=== PATIENT | male | born 1970 | race Caucasian/White ===

== ENCOUNTER 2020-03-04 18:06 | Outpatient (REF) | payer MEDICAID, SELFPAY ==
--- NOTE | 2020-03-04 18:10 | MR_ITS ---
MR LUMBAR SPINE WITHOUT CONTRAST CLINICAL INFORMATION: Low back pain. Bilateral leg pain. COMPARISON: Lumbar spine radiographs January 27, 2020. TECHNIQUE: MRI of the lumbar spine was obtained using routine sequences without contrast. FINDINGS: There are 5 nonrib-bearing lumbar-type vertebral bodies. Lumbar alignment is maintained. The vertebral body heights are preserved. There is moderate to severe disc volume loss and there is disc desiccation at L5-S1. There is no bone marrow edema. There are no acute fractures. There are Modic type II endplate signal changes at L5-S1. The conus terminates at the L1 level. There are no significant soft tissue findings. The L1-L2, L2-L3, and L3-L4 disc contours are normal. There is no central canal stenosis and there is no foraminal stenosis at these levels. L4-L5: Small annular disc bulge and mild bilateral facet arthropathy. There is no central canal stenosis. There is no foraminal stenosis. L5-S1: There is an inferiorly migrating left paracentral disc extrusion that compresses the traversing left S1 nerve root within the left subarticular zone. There is also a shallow broad-based disc protrusion at this level that contacts the traversing right S1 nerve root within the right subarticular zone. There is also a far left lateral disc osteophyte protrusion at this level that contacts the extraforaminal left L5 nerve root. MR/MR lumbar spine wo con IMPRESSION: At L5-S1, there is an inferiorly migrating left paracentral disc extrusion that compresses the traversing left S1 nerve root within the left subarticular zone. There is also a shallow broad-based disc protrusion at this level that contacts the traversing right S1 nerve root within the right subarticular zone. There is also a far left lateral disc osteophyte protrusion at this level that contacts the extraforaminal left L5 nerve root.
== END 2020-03-04 18:07 | disposition home or self-care (01) ==
LOC: HO.MRI 18:06
PROVIDERS: PCP Internal Medicine; Visit Provider Internal Medicine
DX: M54.5 Low back pain (principal)
CPT/HCPCS: 72148

== ENCOUNTER 2020-10-03 09:22 | Outpatient (REF) | payer MEDICAID, SELFPAY ==
--- NOTE | ~2020-10-03 | XR_ITS ---
EXAMINATION: XR HAND, RIGHT XR HAND, LEFT CLINICAL INFORMATION: Anesthesia of skin COMPARISON: None TECHNIQUE: Each hand is imaged in 3 views. There are a total of 6 views. FINDINGS: Right: There is normal bony mineralization. No fracture, dislocation, destructive process. The ulnar variance is neutral. Carpus shows no narrowing or erosive change or chondrocalcinosis. The MCP and interphalangeal joints are unremarkable. Left: There is normal bony mineralization. No fracture, dislocation, destructive process. The ulnar variance is neutral. Carpus shows no narrowing or erosive change or chondrocalcinosis. The MCP and interphalangeal joints are unremarkable. XR/XR hand LT min 3V IMPRESSION: Normal study.
--- NOTE | ~2020-10-03 | XR_ITS ---
EXAMINATION: XR HAND, RIGHT XR HAND, LEFT CLINICAL INFORMATION: Anesthesia of skin COMPARISON: None TECHNIQUE: Each hand is imaged in 3 views. There are a total of 6 views. FINDINGS: Right: There is normal bony mineralization. No fracture, dislocation, destructive process. The ulnar variance is neutral. Carpus shows no narrowing or erosive change or chondrocalcinosis. The MCP and interphalangeal joints are unremarkable. Left: There is normal bony mineralization. No fracture, dislocation, destructive process. The ulnar variance is neutral. Carpus shows no narrowing or erosive change or chondrocalcinosis. The MCP and interphalangeal joints are unremarkable. XR/XR hand RT min 3V IMPRESSION: Normal study.
== END 2020-10-03 09:23 | disposition home or self-care (01) ==
LOC: HO.XRAY 09:22
PROVIDERS: PCP Internal Medicine; Visit Provider Internal Medicine
DX: R20.0 Anesthesia of skin (principal)
CPT/HCPCS: 73130

== ENCOUNTER 2021-02-23 09:09 | Outpatient (REF) | payer MEDICAID, SELFPAY ==
--- NOTE | 2021-02-23 09:10 | EMG_ITS ---
Bilateral median and ulnar motor and sensory studies were performed. Bilateral radial sensory studies were performed. Paraspinal muscles were tested with a needle. IMPRESSION: There was no evidence of median neuropathy. There was evidence of ulnar nerve slowing, which was mild on right side and early on left. MD JADON Watkins/MODL / [id number]
== END 2021-02-23 09:10 | disposition home or self-care (01) ==
LOC: HO.NEURO 09:09
PROVIDERS: PCP Internal Medicine; Visit Provider Internal Medicine
DX: R20.0 Anesthesia of skin (principal)
CPT/HCPCS: 95886; 95911

== ENCOUNTER → 2021-03-21 14:53 | Outpatient (BNVA) | payer MEDICAID, SELFPAY | PROVIDERS: Visit Provider Orthopaedic Surgery | DX: G56.21 Lesion of ulnar nerve, right upper limb (principal) | CPT/HCPCS: 99202 ==

== ENCOUNTER → 2021-06-01 15:32 | Outpatient (BNVA) | payer MEDICAID, SELFPAY | PROVIDERS: PCP Internal Medicine; Referring Provider Internal Medicine; Visit Provider Physician Assistant ==

== ENCOUNTER → 2021-06-30 08:42 | Outpatient (BNVA) | payer MEDICAID, SELFPAY | PROVIDERS: PCP Internal Medicine; Visit Provider Surgery ==

== ENCOUNTER 2021-07-12 09:49 | Outpatient (REF) | payer MEDICAID, SELFPAY ==
--- NOTE | ~2021-07-12 | XR_ITS ---
EXAMINATION: XR CHEST CLINICAL INFORMATION: Obesity COMPARISON: None TECHNIQUE: 2 views of the chest were obtained. FINDINGS: No significant abnormality is noted involving the heart, lungs, mediastinum, bony thorax or soft tissues. XR/XR chest 2V IMPRESSION: Unremarkable chest examination.
--- NOTE | 2021-07-12 09:58 | ECG_ITS ---
Test Reason : E66.9 Blood Pressure : / mmHG Vent. Rate : 103 BPM Atrial Rate : 103 BPM P-R Int : 116 ms QRS Dur : 084 ms QT Int : 328 ms P-R-T Axes : 058 130 009 degrees QTc Int : 429 ms Sinus tachycardia Right axis deviation Abnormal ECG No previous ECGs available Referred By: Sudhir Casiano Electronically Signed By:Luis Alberto Gamez
[2021-07-12 10:12] LABS: MANUAL DIFF FLAG NO
[2021-07-12 10:30] LABS: Basophils Percent Auto 0.7 % (0-2); Eosinophils Absolute Auto 0.3 X10*3/uL (0.0-0.4); Eosinophils Percent Auto 5.2 % (0-4); Hematocrit 46.7 % (42.0-52.0); Hemoglobin 15.7 g/dl (14.0-18.0); Imm Gran Abs Auto 0.02 X10*3/uL (0.00-0.03); Imm Gran Pct Auto 0.3 % (0.0-0.4); Lymphocytes Absolute Auto 2.5 X10*3/uL (1.2-4.9); Lymphocytes Percent Auto 43.1 % (20-40); Mean Corpuscular HGB Conc 33.6 g/dl (31.0-36.0); Mean Corpuscular Hemoglobin 29.5 pg (27.0-33.0); Mean Corpuscular Volume 87.6 fL (80.0-98.0); Monocytes Absolute Auto 0.6 X10*3/uL (0.1-1.2); Monocytes Percent Auto 10.2 % (2-11); Neutrophils Absolute Auto 2.3 x10*3/uL (2.0-8.3); Neutrophils Percent Auto 40.5 % (45-73); Platelet Count 309 X10*3/uL (160-400); Red Blood Count 5.33 X10*6/uL (4.60-5.80); Red Cell Distribution Width 13.4 % (11.0-16.0); White Blood Count 5.8 X10*3/uL (4.8-10.8)
[2021-07-12 11:13] LABS: Estimated Average Glucose 111 mg/dL; Hemoglobin A1c % 5.5 %
[2021-07-12 11:28] LABS: Alanine Aminotransferase 43 U/L (0-40); Albumin Level 4.1 g/dL (3.5-5.0); Alkaline Phosphatase 111 U/L (39-117); Anion Gap 12 (12-20); Aspartate Amino Transferase 25 U/L (5-37); Bilirubin Total 0.4 mg/dL (0.0-1.0); Blood Urea Nitrogen 16 mg/dL (9-16); C Reactive Protein 0.44 mg/dL (< or = 0.50); Calcium 9.4 mg/dL (8.4-10.2); Carbon Dioxide 31 mmol/L (22-29); Chloride 103 mmol/L (96-108); Cholesterol 188 mg/dL; Estimated Glomerular Filt Rate 56; Glucose Random 100 mg/dL (60-115); HDL Cholesterol 35 mg/dL; Iron 46 mcg/dL (45-160); LDL Cholesterol Calculated 106 mg/dl; Potassium 4.8 mmol/L (3.3-5.1); Sodium 141 mmol/L (135-145); Total Protein 7.3 g/dL (6.5-8.0); Triglycerides 237 mg/dL
[2021-07-12 11:40] LABS: TSH reflex Free T4 1.49 uIU/mL (0.32-4.0); Vitamin D 25-OH Total 18.4 ng/mL (>30)
[2021-07-12 11:43] LABS: Folate 13.1 ng/mL (> or = 4.0); Vitamin B12 329 pg/mL (200-900)
[2021-07-12 12:14] LABS: Percent Iron Saturation 15 % (15-50); Total Iron Binding Capacity 302 mcg/dL (228-428); Unsaturated Iron Binding 256 ug/dL
[2021-07-12 12:34] LABS: Ferritin 84 ng/mL (20-250); Insulin 23 uU/mL (2-29)
[2021-07-13 14:33] LABS: Calcium (PTHI) 9.4 mg/dL (8.6-10.3); PTHI 99 pg/mL (14-64)
[2021-07-15 03:42] LABS: Zinc 77 mcg/dL (60-130)
[2021-07-17 12:31] LABS: Vitamin B1 12 nmol/L (8-30)
[2021-07-18 03:16] LABS: Vitamin A 52 mcg/dL (38-98)
== END 2021-07-12 09:50 | disposition home or self-care (01) ==
LOC: HO.XRAY 09:49
PROVIDERS: PCP Internal Medicine; Visit Provider Surgery
DX: E66.9 Obesity, unspecified (principal); K21.9 Gastro-esophageal reflux disease without esophagitis; G47.30 Sleep apnea, unspecified; Z68.36 Body mass index [BMI] 36.0-36.9, adult
CPT/HCPCS: 36415; 71046; 80053; 80061; 82306; 82607; 82728; 82746; 83036; 83525; 83540; 83970; 84425; 84443; 84590; 84630; 85025; 86140; 93005

== ENCOUNTER → 2021-07-24 08:35 | Outpatient (BNVA) | payer MEDICAID, SELFPAY | PROVIDERS: PCP Internal Medicine; Visit Provider Dietitian, Registered | DX: E66.9 Obesity, unspecified (principal); Z68.35 Body mass index [BMI] 35.0-35.9, adult | CPT/HCPCS: 97802 ==

== ENCOUNTER 2021-08-01 13:57 | Outpatient (REF) | payer MEDICAID, SELFPAY | END 2021-08-01 13:58 | disposition home or self-care (01) | LOC: HO.US 13:57 | PROVIDERS: Visit Provider Surgery | DX: Z13.89 Encounter for screening for other disorder (principal) ==

== ENCOUNTER → 2021-08-03 09:50 | Outpatient (REF) | payer MEDICAID, SELFPAY ==
--- NOTE | ~2021-08-03 | NM_ITS ---
Lexiscan Myocardial perfusion study Indication: Preoperative cardiovascular evaluation, obesity Technique: The patient was brought in for a Lexiscan perfusion study on 08/03/2021 and was injected 0.4 mg of Lexiscan intravenously. Within a minute of this injection 35 mCi of sestamibi was given intravenously. Images were obtained using the SPECT gamma camera interlaced with the gating device. Images were obtained in supine position. Resting perfusion study was performed on 08/07/2021. Patient was administered 35 mCi of sestamibi intravenously at rest. Images were then obtained in supine position. Total [id number]. Images were processed with the software and compared side to side in short axis, horizontal long axis and vertical long axis views. Findings: Raw acquisition was reviewed. The stress perfusion study showed diminished tracer uptake along the inferior wall. There is improvement with CT attenuation correction side S2 of diaphragmatic attenuation artifact. However in the CT attenuation corrected images there is diminished uptake in the anterior wall which could be artifactual. The gated study shows normal LV systolic function with calculated LVEF of 56%. LV cavity is normal in size. The gated study shows normal wall thickening and contraction of segments. Resting study shows no significant perfusion abnormality. Gating at rest reveals normal wall motion with ejection fraction at 73%. The findings are consistent with reversible inferior perfusion defect suspected to be from diaphragmatic attenuation artifact. NM/NM jose miguel perf SPECT rest & str Impression: 1. Myocardial perfusion imaging study shows no definitive evidence of any ischemia or infarction. Likely normal perfusion. 2. Gated LVEF is 65% during stress and 73% during rest. 3. Transient ischemic dilatation not present. EKG component of the test reported separately.
--- NOTE | 2021-08-03 09:53 | CA_ITS ---
Acquisition Time: 2021-08-03 09:56:46 Total Exercise Time: 00:02:00 Test Indications: R94.31 - Abnormal electrocardio Medications: Protocol: LEXISCAN Max HR: 127 BPM 74% of Pred: 171 BPM Max BP: 114/070 mmHG Max Work Load: 1.0 METS Pharmacological stress test with Lexiscan injection, while sitting and kicking his legs, without anginal symptoms, without arrythmia, with normotensive response to injection, with T wave inversions inferior, V3-V6 post injection, which corrects quickly, nondiagnostic for ischemia. In recovery he reported fatigue which was treated with Aminophylline 75mg IVP to reverse Lexiscan with resolution of symptom. Nuclear images pending. Test reviewed with Dr Gamez. Referred By: Sudhir Casiano Overread By: COLE BOOTH
== END ==
LOC: HO.CARD 09:50
PROVIDERS: Visit Provider Surgery
DX: R94.31 Abnormal electrocardiogram [ECG] [EKG] (principal)
CPT/HCPCS: 78452; 93017; A9500; J0280; J2785

== ENCOUNTER 2021-08-04 11:01 | Outpatient (REF) | payer MEDICAID, SELFPAY ==
[2021-08-06 11:40] LABS: H Pylori Breath Test Negative (Negative)
== END 2021-08-04 11:02 | disposition home or self-care (01) ==
LOC: HO.LNP 11:01
PROVIDERS: PCP Internal Medicine; Visit Provider Surgery
DX: E66.9 Obesity, unspecified (principal); Z68.36 Body mass index [BMI] 36.0-36.9, adult; K21.9 Gastro-esophageal reflux disease without esophagitis; G47.30 Sleep apnea, unspecified
CPT/HCPCS: 83013; 99211

== ENCOUNTER 2021-08-08 14:49 | Outpatient (REF) | payer MEDICAID, SELFPAY ==
--- NOTE | ~2021-08-08 | US_ITS ---
EXAMINATION: US COMPLETE ABDOMEN WITH LIVER ELASTOGRAPHY CLINICAL INFORMATION: Obesity. COMPARISON: None. TECHNIQUE: Real-time imaging of the abdominal viscera. Noninvasive ultrasound liver fibrosis assessment is performed using Shoaib ElastPQ point quantification shear wave elastography (2D-SWE) with a C5-2 MHz transducer. Multiple elastography samples are obtained. FINDINGS: PANCREAS: The visualized pancreatic head and body are normal in appearance. The remainder of the pancreas is obscured from visualization by the overlying bowel gas. ABDOMINAL AORTA: The proximal abdominal and IVC are not seen. The mid and the distal abdominal aorta are of normal caliber. INFERIOR VENA CAVA: Not visualized. LIVER: The liver demonstrates normal size, contour and increased echogenicity with areas of focal fatty sparing. No intrahepatic biliary duct dilatation. The right lobe measures 14.4 cm in length. The left lobe measures 8.5 cm in length. Portal flow is hepatopedal. Shear wave liver elastography median stiffness is 1.9 m/s (reference: normal median stiffness is 1.3 m/s or less). IQR/median stiffness to assess sampling precision is 0.26 (reference: good quality data set is IQR/median stiffness of 0.15 or less). GALLBLADDER: The gallbladder is limited in visualization due to patient's body habitus. No echogenic gallstones or wall thickening seen. COMMON BILE DUCT: Normal in caliber measuring 0.25 cm in diameter. RIGHT KIDNEY: Normal. No hydronephrosis. No renal calculi or focal parenchymal lesions. The kidney measures 10.0 cm in maximum dimension. LEFT KIDNEY: Normal. No hydronephrosis. No renal calculi or focal parenchymal lesions. The kidney measures 11.2 cm in maximum dimension. SPLEEN: Normal. The spleen measures 7.7 cm in maximum dimension. FREE FLUID: None. US/US abdomen comp w elastography IMPRESSION: 1. Diffuse hepatic steatosis with areas of focal fatty sparing. 2. Liver elastography: Median liver stiffness 1.9 m/s corresponding to cACLD suggestive. REFERENCE: Society of Radiologists in Ultrasound Liver Stiffness Thresholds (2020): LIVER STIFFNESS THRESHOLDS: *Liver Stiffness equal or less than 1.3 m/s: High probability of being normal. *Liver Stiffness less than 1.7 m/s: In the absence of other known clinical signs, rules out compensated advanced chronic liver disease. *Liver Stiffness 1.7-2.1 m/s: Suggestive of compensated advanced chronic liver disease but need further test for confirmation. *Liver Stiffness over 2.1 m/s: Rules in compensated advanced chronic liver disease. *Liver Stiffness over 2.4 m/s: Suggestive of clinically significant portal hypertension. QUALITY OF DATA SET: *IQR/Median value equal or less than 0.15 implies a quality data set. *IQR/Median value over 0.15 implies a poor quality data set. SIGNIFICANT CHANGE FROM PRIOR EXAM: Significant change if liver stiffness measurement is 10% or greater from prior exam. OTHER CONSIDERATIONS: The stage of liver fibrosis may be overestimated in the setting of acute hepatitis, liver inflammation, elevated liver function tests, hepatic vascular congestion, obstructive cholestasis, non-fasting state, and infiltrative diseases such as amyloidosis and lymphoma. In some patients with NAFLD, the liver stiffness thresholds for compensated advanced chronic liver disease may be lower. In causes other than viral hepatitis and NAFLD, liver stiffness thresholds are not well established.
== END 2021-08-08 14:50 | disposition home or self-care (01) ==
LOC: HO.US 14:49
PROVIDERS: Visit Provider Surgery
DX: E66.9 Obesity, unspecified (principal); Z68.36 Body mass index [BMI] 36.0-36.9, adult; G47.30 Sleep apnea, unspecified; K21.9 Gastro-esophageal reflux disease without esophagitis
CPT/HCPCS: 76705; 76981

== ENCOUNTER 2021-08-14 10:46 | Outpatient (REF) | payer MEDICAID, SELFPAY ==
--- NOTE | ~2021-08-14 | FL_ITS ---
EXAMINATION: XR FLUOROSCOPY UPPER GI WITH AIR CLINICAL INFORMATION: Obesity COMPARISON: None TECHNIQUE: Fluoroscopic assessment of the upper GI tract was performed in various upright and supine/prone obliquities utilizing thin and thick high density barium contrast material and effervescent granules. FINDINGS: The esophagus was normal in course, caliber, and contour. There was normal distensibility with no fixed segment of narrowing. No focal mucosal abnormality was identified. Mild esophageal dysmotility was observed. Contrast passed freely across the gastroesophageal junction into the stomach. No significant hiatal hernia. Mildly prominent A ring is noted transiently. There was normal distensibility of the stomach with no focal abnormality identified. There was prompt gastric emptying into the duodenum which demonstrated a normal appearance. Mild gastroesophageal reflux was observed. FLUOROSCOPY TIME: 1.7 minutes DOSE AREA PRODUCT: 17.271 Gy-cm2 (fleming-centimeter squared) FL/FL upper GI w air IMPRESSION: Mild esophageal dysmotility with mild gastroesophageal reflux.
== END 2021-08-14 10:47 | disposition home or self-care (01) ==
LOC: HO.XRAY 10:46
PROVIDERS: Visit Provider Surgery
DX: E66.9 Obesity, unspecified (principal); Z68.36 Body mass index [BMI] 36.0-36.9, adult; G47.30 Sleep apnea, unspecified; K21.9 Gastro-esophageal reflux disease without esophagitis
CPT/HCPCS: 74246

== ENCOUNTER → 2021-08-16 15:02 | Outpatient (BNVA) | payer MEDICAID, SELFPAY | PROVIDERS: PCP Internal Medicine; Referring Provider Surgery; Visit Provider Dietitian, Registered | DX: E66.9 Obesity, unspecified (principal); Z68.35 Body mass index [BMI] 35.0-35.9, adult | CPT/HCPCS: 97803 ==

== ENCOUNTER → 2021-08-29 13:55 | Outpatient (REF) | payer MEDICAID, SELFPAY ==
--- NOTE | 2021-08-29 14:21 | CA_ITS ---
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 The visually estimated ejection fraction is between 60-65%. Spectral Doppler is indicative of a normal filling pattern. Right Ventricle Normal right ventricular cavity size and systolic function. Atria Both atria are normal in size. Interatrial shunt cannot be excluded. Aortic Valve The aortic valve structure and function is likely normal. There is no aortic valve stenosis. There is no aortic valve regurgitation. Mitral Valve Likely normal mitral valve structure and function. There is trace mitral valve regurgitation. There is no mitral valve stenosis. Pulmonic Valve The pulmonic valve was not well visualized. Tricuspid Valve Likely normal tricuspid valve structure and function. There is trace tricuspid valve regurgitation. The right ventricular systolic pressure is 24 mmHg. Normal right atrial pressure. There is no evidence of pulmonary hypertension. Great Vessels All visible segments of the aorta are normal in size. The pulmonary artery was not well visualized. Venous The inferior vena cava is normal in size and collapses greater than 50% with inspiration. Pericardium/Pleural There is no evidence of pericardial effusion. Prior Study Comparison No prior study available for comparison. Measurements 2D Linear Measurements IVSd: 0.98 0.6-0.9/0.6-1.0 cm LVIDd: 4.20 3.9-5.3/4.2-5.9 cm LVIDd Index: 2.03 2.4-3.2/2.2-3.1 cm/m2 LVIDs: 2.77 2.0-3.6 cm LVPWd: 1.06 0.7-1.1 cm LA Diam: 3.00 2.7-3.8/3.0-4.0 cm LAIDs Index: 1.45 1.5-2.3 cm/m2 LV Mass: 176.00 67-162/88-224 g LV Mass Index: 85.03 43-95/49-115 g/m2 LVOT Diam: 2.10 3.0+(-)1.3 cm 2D Systolic Function EF 4C: 59.60 >55% EF 2C: 61.80 >55% EF BiP: 59.90 >55% Mitral Valve MV Pk E: 0.88 MV PK A: 0.73 MV Decel Time: 153.00 E/A: 1.20 E'Lateral: 8.70 E'Medial: 6.85 E/E' Med: 12.80 E/E' Lat: 10.10 PHT: 45.00 MVA PHT: 4.89 Decel Liberty: 5.73 Aortic Valve AoV Pk Sean: 1.20 AoV Mn Sean: 0.89 AoV VTI: 0.25 AoV Pk Grad: 6.00 Aov Mn Grad: 3.00 PRESTON Cont.VTI: 2.84 LVOT LVOT Pk Sean: 0.91 LVOT Mn Sean: 0.62 LVOT VTI: 0.20 LVOT Pk Grad: 3.00 LVOT Mn Grad: 2.00 LVOT Diam: 2.10 LVOT Area: 3.46 Diastolic Function MV Pk E: 0.88 MV Pk A: 0.73 E/A: 1.20 E'Medial: 6.85 E/E' Med: 12.80 E' Laterial: 8.70 E/E' Lat: 10.10 Right Ventricle TAPSE (mm): 17.80 TVS' Sean: 10.80 Tricuspid Valve TR Pk Sean: 1.99 TR Pk Grad: 16.00 RA Press: 8.00 RVSP: 24.00 Great Vessels Aorta Sinus of Valsalva: 2.73 2.0-3.[address] Ridge: 2.59 1.7-3.4 cm Ao Arch: 2.80 Updated in Other Vendor System with Status of Final Mingo Garcia MD electronically signed on 08/30/2021 8:53:57 AM with status of Final
== END ==
LOC: HO.CARD 13:55
PROVIDERS: Visit Provider Surgery
DX: I10 Essential (primary) hypertension (principal); R94.31 Abnormal electrocardiogram [ECG] [EKG]
CPT/HCPCS: 93306

== ENCOUNTER → 2021-09-13 08:13 | Outpatient (BNVA) | payer MEDICAID, SELFPAY | PROVIDERS: PCP Internal Medicine; Visit Provider Surgery | DX: Z13.89 Encounter for screening for other disorder (principal) ==

== ENCOUNTER → 2021-11-27 12:30 | Outpatient (BNVA) | payer MEDICAID, SELFPAY | PROVIDERS: PCP Internal Medicine; Visit Provider Surgery | DX: K64.9 Unspecified hemorrhoids (principal) | CPT/HCPCS: 46600; 99202 ==

== ENCOUNTER 2022-01-16 10:55 | Outpatient (REF) | payer MEDICAID, SELFPAY ==
[2022-01-16 11:13] LABS: MANUAL DIFF FLAG NO
[2022-01-16 11:52] LABS: Basophils Percent Auto 0.7 % (0-2); Eosinophils Absolute Auto 0.1 X10*3/uL (0.0-0.4); Eosinophils Percent Auto 3.2 % (0-4); Hemoglobin 16.6 g/dl (14.0-18.0); Imm Gran Abs Auto 0.01 X10*3/uL (0.00-0.03); Imm Gran Pct Auto 0.2 % (0.0-0.4); Lymphocytes Absolute Auto 2.3 X10*3/uL (1.2-4.9); Lymphocytes Percent Auto 52.9 % (20-40); Mean Corpuscular HGB Conc 34.6 g/dl (31.0-36.0); Mean Corpuscular Hemoglobin 29.9 pg (27.0-33.0); Mean Corpuscular Volume 86.5 fL (80.0-98.0); Mean Platelet Volume 9.3 fL (9.4-12.4); Monocytes Absolute Auto 0.4 X10*3/uL (0.1-1.2); Monocytes Percent Auto 9.2 % (2-11); Neutrophils Absolute Auto 1.5 x10*3/uL (2.0-8.3); Neutrophils Percent Auto 33.8 % (45-73); Platelet Count 297 X10*3/uL (160-400); Red Blood Count 5.55 X10*6/uL (4.60-5.80); Red Cell Distribution Width 12.8 % (11.0-16.0); White Blood Count 4.4 X10*3/uL (4.8-10.8)
[2022-01-16 12:01] LABS: Estimated Average Glucose 105 mg/dL; Hemoglobin A1C 148.6176 umol/L; Hemoglobin A1c % 5.3 %
[2022-01-16 12:02] LABS: INTERNATIONAL NORM RATIO 0.9 (0.9-1.1); Prothrombin Time 10.7 SEC (10.0-13.1)
[2022-01-16 12:05] LABS: Partial Thromboplastin Time 35.7 SEC (26.0-36.4)
[2022-01-16 12:29] LABS: Alanine Aminotransferase 28 U/L (0-40); Albumin Level 4.1 g/dL (3.5-5.0); Alkaline Phosphatase 105 U/L (39-117); Anion Gap 14 (12-20); Aspartate Amino Transferase 19 U/L (5-37); Bilirubin Total 0.3 mg/dL (0.0-1.0); Blood Urea Nitrogen 19 mg/dL (9-16); C Reactive Protein 0.17 mg/dL (< or = 0.50); Carbon Dioxide 27 mmol/L (22-29); Chloride 105 mmol/L (96-108); Cholesterol 178 mg/dL; Estimated Glomerular Filt Rate > 60; Glucose Random 93 mg/dL (60-115); HDL Cholesterol 33 mg/dL; LDL Cholesterol Calculated 118 mg/dl; Potassium 4.6 mmol/L (3.3-5.1); Sodium 141 mmol/L (135-145); Total Protein 7.2 g/dL (6.5-8.0); Triglycerides 139 mg/dL
[2022-01-16 12:42] LABS: Insulin 13 uU/mL (2-29); TSH reflex Free T4 1.66 uIU/mL (0.32-4.0)
== END 2022-01-16 10:56 | disposition home or self-care (01) ==
LOC: HO.LAB 10:55
PROVIDERS: PCP Internal Medicine; Visit Provider Surgery
DX: K21.9 Gastro-esophageal reflux disease without esophagitis (principal); E66.9 Obesity, unspecified; Z68.34 Body mass index [BMI] 34.0-34.9, adult; G47.30 Sleep apnea, unspecified
CPT/HCPCS: 36415; 80053; 80061; 83036; 83525; 84443; 85025; 85610; 85730; 86140

== ENCOUNTER 2022-01-23 06:55 | Inpatient (IN) | payer MEDICAID, SELFPAY ==
[2022-01-10 10:56] VITALS: BMI 33.5
--- NOTE | 2022-01-19 22:46 | MHC.SHP ---
Pre-Procedural Eval Section A Date of Service: 01/19/22 The patient is an INPATIENT: Yes The History & Physical has been completed within 30 days and I have reviewed it.: Yes Section B Chief Complaint: obesity Relevant Family History (Specify if Yes): No Relevant Social History: None Present Medications: None Medical History: No relevant PMH History of Previous Operations: No relevant previous surgery Allergies: Allergies Allergy/AdvReac Type Severity Reaction Status Date / Time Penicillins [PENICILLINS] Allergy Severe Anaphylaxis Verified 01/10/22 10:55 Review of Systems Sugical H&P ROS: Negative: Constitution, Cardiovascular, Respiratory, Neurological, Psychiatric, Hem-Onc, Allergic/Immunologic, Gastrointestinal, Genitourinary, Musculoskeletal, Integumentary, Endocrine and Eyes/Ears/Nose/Throat Exam Surgical H&P Exam: Normal: HEENT, Normal: Heart, Normal: Lungs, Normal: Extremities, Normal: Abdomen, Normal: Skin and Normal: Neurological Plan Diagnosis/Plan: Unchanged I have reviewed the history and physical and performed a pertinent physical examination on my patient. No changes have occurred unless specified.
--- NOTE | 2022-01-22 10:30 | P.CONAN_ITS ---
Documented by User: Manisha Desai NP 01/22/22 10:31 HPI - Anesthesia Eval Consult details Narrative: 51yo M for Gastrectomy Sleeve, possible diaphragmatic hernia,possible ventral hernia,possible open PMFSH Active Problems Active Problems: All Active Problems (Updated 01/10/22 @ 11:00 by Mary Anne Chatman, MARIAN) Cubital tunnel syndrome on right (Acute) BMI 36.0-36.9,adult (Acute) Vitamin D deficiency (Acute) Vitamin B12 deficiency (Acute) Abnormal EKG (Acute) BMI 34.0-34.9,adult (Acute) BMI 33.0-33.9,adult (Acute) Bleeding hemorrhoids (Acute) Depression (Acute) PTSD (post-traumatic stress disorder) (Acute) Arthritis (Acute) GERD (gastroesophageal reflux disease) (Acute) Sleep apnea (Acute) Obesity (Acute) Past Medical History Medical History (Updated 01/10/22 @ 11:00 by Mary Anne Chatman, MARIAN) Anxiety Arthritis Back pain Bleeding hemorrhoids Chronic sinusitis COVID-19 vaccine series completed Depression GERD (gastroesophageal reflux disease) Lumbar disc herniation Obesity PTSD (post-traumatic stress disorder) Sleep apnea Surgical History Surgical History (Updated 01/10/22 @ 10:55 by Mary Anne Chatman RN) H/O colonoscopy History of esophagogastroduodenoscopy (EGD) Hx of hemorrhoidectomy Social History Social History Are you a primary customer care team coach to a significant other at home: No Do you presently have visiting nurse or other home services: No Patient Tobacco Use Status: Never used Tobacco Meds Allergies Allergy/AdvReac Type Severity Reaction Status Date / Time Penicillins [PENICILLINS] Allergy Severe Anaphylaxis Verified 01/10/22 10:55 Home Medications Medication Instructions Recorded Confirmed Last Taken Type bupropion HCl 75 mg tablet 75 mg PO TID 03/21/21 01/10/22 01/22/22 History hydroxyzine HCl 10 mg tablet 10 mg PO BEDTIME 03/21/21 01/10/22 01/22/22 History melatonin 5 mg capsule 5 mg PO BEDTIME 03/21/21 01/10/22 01/22/22 History prazosin 1 mg capsule 1 mg PO BEDTIME 03/21/21 01/10/22 01/22/22 History tramadol 50 mg tablet 50 mg PO DAILY 03/21/21 01/10/22 01/22/22 History aripiprazole 15 mg tablet 15 mg PO BEDTIME 04/20/21 01/10/22 01/22/22 History cholecalciferol (vitamin D3) 50 1 cap PO QAM 04/20/21 01/08/22 01/22/22 History mcg (2,000 unit) capsule gabapentin 300 mg capsule 300 mg PO TID 04/20/21 01/10/22 01/22/22 History topiramate 50 mg tablet 100 mg PO BEDTIME 04/20/21 01/10/22 01/22/22 History Exam Exam Date and Time: January 22, 2022 1030 Height,Weight and Vital Signs: Height 5 ft 6 in Weight 94.347 kg Pertinent Lab Results Pertinent Lab Results: Laboratory Tests 01/16/22 11:07 Blood Type A Positive Antibody Screen NEGATIVE Laboratory Tests 01/16/22 01/16/22 11:07 11:07 WBC 4.4 L Hgb 16.6 Hct 48.0 Plt Count 297 Sodium 141 Potassium 4.6 Chloride 105 Carbon Dioxide 27 BUN 19 H Creatinine 1.23 Narrative Narrative: EKG 07/2021 Vent. Rate : 103 BPM ? ? Atrial Rate : 103 BPM ?? P-R Int : 116 ms? QRS Dur : 084 ms ? ? QT Int : 328 ms ? ? ? P-R-T Axes : 058 130 009 degrees ?? QTc Int : 429 ms ? Sinus tachycardia Right axis deviation Abnormal ECG No previous ECGs available ECHO 08/2021 Conclusions: - Essentially normal study ? Findings Left Ventricle Normal left ventricular size, thickness, and systolic function. The visually estimated ejection fraction is between 60-65%.? Spectral Doppler is indicative of a normal filling pattern. NM jose miguel perf SPECT rest & str 07/2021 Impression: ? 1.? Myocardial perfusion imaging study shows no definitive evidence of any ischemia or infarction. Likely normal perfusion. 2.? Gated LVEF is 65% during stress and 73% during rest. 3. Transient ischemic dilatation not present. ? EKG component of the test reported separately. Assessment and Plan Assessment Anesthesia Assessment: Chart Reviewed Documented by User: Marciano Mendoza MD 01/23/22 06:56 [facility] Past Medical History Medical History (Updated 01/10/22 @ 11:00 by Mary Anne Chatman, MARIAN) Anxiety Arthritis Back pain Bleeding hemorrhoids Chronic sinusitis COVID-19 vaccine series completed Depression GERD (gastroesophageal reflux disease) Lumbar disc herniation Obesity PTSD (post-traumatic stress disorder) Sleep apnea Family History Family history of problems with anesthesia: No Surgical History Surgical History (Updated 01/10/22 @ 10:55 by Mary Anne Chatman RN) H/O colonoscopy History of esophagogastroduodenoscopy (EGD) Hx of hemorrhoidectomy History of Problems with Anesthesia: No Social History Social History Are you a primary customer care team coach to a significant other at home: No Do you presently have visiting nurse or other home services: No Patient Tobacco Use Status: Never used Tobacco Meds Allergies Allergy/AdvReac Type Severity Reaction Status Date / Time Penicillins [PENICILLINS] Allergy Severe Anaphylaxis Verified 01/10/22 10:55 Home Medications Medication Instructions Recorded Confirmed Last Taken Type bupropion HCl 75 mg tablet 75 mg PO TID 03/21/21 01/10/22 01/22/22 History hydroxyzine HCl 10 mg tablet 10 mg PO BEDTIME 03/21/21 01/10/22 01/22/22 History melatonin 5 mg capsule 5 mg PO BEDTIME 03/21/21 01/10/22 01/22/22 History prazosin 1 mg capsule 1 mg PO BEDTIME 03/21/21 01/10/22 01/22/22 History tramadol 50 mg tablet 50 mg PO DAILY 03/21/21 01/10/22 01/22/22 History aripiprazole 15 mg tablet 15 mg PO BEDTIME 04/20/21 01/10/22 01/22/22 History cholecalciferol (vitamin D3) 50 1 cap PO QAM 04/20/21 01/08/22 01/22/22 History mcg (2,000 unit) capsule gabapentin 300 mg capsule 300 mg PO TID 04/20/21 01/10/22 01/22/22 History topiramate 50 mg tablet 100 mg PO BEDTIME 04/20/21 01/10/22 01/22/22 History Exam Airway Mallampati Class: II TM Dist: >3cm Neck ROM: Full Loose/Missing/Broken Teeth: No Heart: [id number] Lungs: cta b/l Assessment and Plan Assessment Anesthesia Assessment: Anesthesia Plan Discussed Final Anesthetic Review Family History of Problems with Anesthesia: No History of Problems with Anesthesia: No NPO: Yes ASA Class: III Final Preanesthetic Review: No Changes in Pt Med Stat, Meds/Allgs Chart Reviewed, Consent Obtained/Reviewed and Anes Risks/Benef Reviewed Patient Risk: Intermediate Procedure Risk: Intermediate Assessment/Block/Sedation in SS: Assess/Block/Sedation-SS Anesthetic Plan Anesthetic Plan: GA and Agree w/ Assess. and Plan Disposition: Standard PACU
[2022-01-22 13:09] LABS: COVID-19 Test Negative (Negative); IDNOW Serial# 16C4AD1C
[2022-01-23] VITALS (13 sets, daily range): BP systolic 99–127; BP diastolic 63–82; PULSE 81–95; RESP 12–18; TEMP 36.1–36.8; O2SAT 93–99; BMI 33.5
[2022-01-23] MEDS: Lactated Ringers 1,000 ML 100 ML IVCONT ×3 (06:59→20:01)
[2022-01-23] MEDS: Lactated Ringers 1,000 ML 999 ML IV (06:59)
--- NOTE | 2022-01-23 07:15 | PHA.MEDREC ---
Pharmacy Consult ? Medication Reconciliation Pharmacy has completed the medication reconciliation. Reviewed med rec done by nursing
--- NOTE | 2022-01-23 07:46 | P.BOP_ITS ---
Brief Operative Note Date of Service: 01/23/22 Pre-op diagnosis: Severe obesity with comorbidities (see below) Post-op diagnosis: same (& diaphragmatic hernia) Procedure: INITIAL PATIENT BMI ON PRESENTATION AT OUR OFFICE: 36.4 kg/m2 LAST BMI BEFORE SURGERY: 33.4 kg/m2 COMORBIDITIES: sleep apnea on CPAP, DJD, hypertension, insomnia, depression, anxiety, GERD, liver steatosis, liver fibrosis ?The patient presented to the Weight Management Program with significant obesity that was negatively impacting the patient's comorbidities as listed above.? The program is a phased program with a special focus on preoperative medical weight management to promote substantial weight loss and prepare the patients for the second phase of the program: bariatric surgery. The patient participated in an intensive weekly lifestyle ?intervention and exercise program during which the patient ?has lost between the initial office visit and the last preoperative visit 20.2lbs, or 8.96% of initial actual body weight. It was deemed appropriate for the patient to now have bariatric surgery. In light of the current Covid-19 pandemic and the well documented strong association of obesity and increased risk of worse outcomes if infected with Covid-19 (REFERENCES: https://pubmed.ncbi.nlm.nih.gov/28953807/ ,? https://pubmed.ncbi.nlm.nih.gov/41796504/ ), any delay in undergoing bariatric surgery may lead to the patient's worsening health condition and increased?risk of more severe Covid-19 disease if infected. In addition a recent?study from [facility] published in [employer] on 05/08/2021 ([email or web address] ) found that, among patients with obesity, substantial weight loss achieved with surgery was associated with improved outcomes of COVID-19 infection. The findings suggest that obesity can be a modifiable risk factor for the severity of COVID-19 infection. In addition, the patient met the BMI-criteria for bariatric surgery based on the BMI on initial presentation. The patient should not be penalized for achieving such weight loss because ?it is not sustainable long-term without surgical intervention and it was achieved in preparation for bariatric surgery ?under my direction and based on my published research ([email or web address]).[email or web address] and? https://www.soard.org/article/[email or web address](34)25733-X/pdf ) ?that a 10% preoperative weight loss improves long-term weight loss after surgery and reduces perioperative complications.? Insurance carriers such as [employer] have endorsed my recommendations ?and have included in their policies criteria to include a 10% preoperative weight loss requirement. PROCEDURE: Esophago-gastroscopy, laparoscopic repair of incarcerated diaphragmatic hernia, laparoscopic sleeve gastrectomy and laparoscopic gastropexy INDICATIONS: This is a 51 year-old male who was electively scheduled for laparoscopic, possibly open sleeve gastrectomy. The risks and complications of the procedure were discussed with the patient in advance, particularly the possibility of ; pulmonary embolism; staple line leak; bleeding; GERD; cardiac, pulmonary, or renal complications; as well as long-term problems such as insufficient weight loss, vitamin deficiency, strictures, or ulcers. The patient understood all the risks, and was in agreement to proceed with surgery. DESCRIPTION OF PROCEDURE: After informed consent was obtained from the patient, the patient was given preoperative antibiotics, and was transferred to the operating room. After successful induction of general anesthesia, pneumatic compression devices were placed on both lower extremities. An upper endoscopy was performed next. The oropharynx and esophagus appeared to be within normal limits. There was a diaphragmatic hernia present of moderate size that was not reported at the preoperative upper GI. The stomach was entered. Then after all fluid and air were suctioned and the stomach was fully decompressed, the scope was withdrawn and secured in the mid esophagus. The patient was then prepped and draped in the usual sterile manner, and abdominal access was established at the right upper quadrant with the Dave technique. A 12 mm blunt port was inserted, and the abdomen was insufflated with CO2 to a pressure of 15 mmHg. Under direct visualization, additional ports were placed, specifically two 5 mm Versi-step ports to the left upper quadrant, and a 5 mm Versi-Step port to the right upper quadrant. 1% lidocaine plain was used to infiltrate all port sites as well as all fascia defects. Using the EndoClose suture passer device, I placed a #1 Polysorb tie across the falciform ligament in order to retract it up against the abdominal wall and prevent injury of the ligament with our instruments during the procedure. Following that, the patient was placed in a steep reverse Trendelenburg position. An additional 5 mm port was placed to the right flank for the Mediflex retractor that was used to retract the left lobe of the liver. The gastro-esophageal fat pad was opened with the ultrasonic device (Thunderbeat, Olympus) and the anterior esophagus and hiatus were exposed. The angle of His was opened with the ultrasonic device the fundus of the stomach from any diaphragmatic and splenic attachments. I then opened the gastrocolic ligament between the transverse colon and the greater curvature of the stomach with the ultrasonic device to enter the lesser sac and facilitate the ligation of the short gastric vessels. I started at a mid-point along the greater curvature and using the Thunderbeat, all short gastric vessels were divided all the way to the angle of His until the left germaine was completely dissected at its entirety. I then divided the gastro-colic ligament distally to a distance of about 3-4 cm proximal to the pylorus. There was an obvious significant-sized posterior hiatal hernia with incarcerated perigastric fat. I continued dissecting along the hiatus toward the left germaine and the angle of His. I fully mobilized the fat pad that was incarcerated in the hernia. I then continued by dissecting even further into the posterior retro- esophageal space all the way to the angle of His. I continued to mobilize the esophagus into the mediastinum circumferentially. Both vagal nerves were seen and preserved. At that point, I was able to have at least 3 to 5 cm of esophagus into the abdomen.? After I completely mobilized the esophagus from both the left and right germaine and I had a good mobilization of the esophagus circumferentially, I closed the hernia defect with two interrupted #0 Surgidac sutures using the Endo Stitch device, all of which was placed posterior to the esophagus. ? The stomach was then divided transversely with one Endo KALE-45 purple, one KALE- 45 orange load and four KALE-60 articulating orange loads using the AEON stapler and loads. Every effort was made that the gastric sleeve had a tubular shape and an even caliber throughout. Once the sleeve resection was completed, the staple line of the gastric sleeve was reinforced with Hemoclips. The resected stomach was retrieved without difficulty from the Dave port. A gastropexy was then performed in order to prevent postoperative GERD and partial gastric volvulus. Several interrupted 2.0 Surgidac sutures were placed between the sleeve's staple line and the previously divided greater omentum and gastro-colic ligament using the Endo-Stitch device. ?An upper endoscopy was performed. There was no narrowing at the GE junction. The scope was easily advanced all the way to the pylorus which was clearly visualized. There was no narrowing anywhere and the sleeve's caliber was even throughout. The sleeve's staple line was inspected and there was no evidence of ischemia, bleeding or dehiscence. At that point the gastroscope was withdrawn from the patient?s mouth while we were decompressing the bowel and the stomach from any remaining air. I looked into the lesser sac to see how the sleeve was situating and it was situating well. There was no bleeding from the staple line, spleen, or short gastric vessels. The Mediflex retractor was removed, and the undersurface of the liver was inspected and there was no bleeding. The patient was placed in supine position. I closed the fascial defect of the 12 mm port site with a figure of eight #1 Polysorb suture. Then 30cc of Ropivacaine plain with 10 mg of Dexamethasone were used to infiltrate the fascial closure as well as all skin incisions. A total of 7ml of Zynrelef was applied in the Dave wound. At this point, the abdomen was deflated, all ports were removed under direct vision, and no bleeding was noted from any of the port sites. The skin incisions were irrigated with saline and were closed with 4-0 absorbable monofilament sutures. Steri-Strips and OpSites were used to cover all incisions. The patient was extubated and was transferred in stable condition to the recovery room for further care. I was present and performed all menard parts of the procedure. Cait Pack was the assistant director of security. There were no residents to assist with this case. Chris Casiano MD, PhD, FACS Surgeon: Sudhir Casiano MD Anesthesia: GETA, local and other (TAP block and 7 ml Zynrelef) Was an Blood Bank Technologist used for this Procedure?: No Blood Bank Technologist: Renae Pack Estimated blood loss (mL): 10 IV fluids (mL): 2,500 Urine output (mL): 0 (No Wilks to record) Pathology: other (Stomach) Condition: stable Disposition: PACU
--- NOTE | 2022-01-23 07:50 | PM.PNGS ---
Subjective Subjective Date of Service: 01/24/22 Interval history: Patient has mild incisional pain, but was able to ambulate and use the incentive spirometer. He is tolerating phase 1 bariatric diet Physical Exam Vital Signs: Vital Signs: Last Vital Signs Temp 97.0 F 01/23/22 06:57 Pulse 92 01/23/22 06:57 Resp 18 01/23/22 06:57 BP 106/64 01/23/22 06:57 Pulse Ox 99 01/23/22 06:57 O2 Del Method 01/23/22 06:57 BMI result Body Mass Index 33.5 GI: Inspection: Yes normal to inspection, Yes incision (clean, dry and intact) and Yes obesity Extrem: Right lower extremity: normal to inspection (no calf tenderness) Left lower extremity: normal to inspection (no calf tenderness) Objective Data Active Medications Fentanyl (Fentanyl Citrate/Pf 100 Mcg/2 Ml Vial) 50 mcg IVPUSH Q5M PRN; Protocol PRN Reason: Pain, Moderate (Pain Scale 4-6 Hydromorphone HCl (Hydromorphone Hcl 0.5 Mg/0.5 Ml Syringe) 0.5 mg IVPUSH Q5M PRN; Protocol PRN Reason: Pain, Severe (Pain Scale 7-10) Lactated Ringer's (Lr) 1,000 mls @ 100 mls/hr IVCONT .Q10H [facility] Last Admin: 01/23/22 06:59 Dose: 100 mls/hr Documented By: NURA Levofloxacin (Levaquin) 500 mg in 100 mls @ 100 mls/hr IV PREOP ONE Stop: 01/23/22 07:54 Lactated Ringer's (Lr) 1,000 mls @ 999 mls/hr IV .Q1H1M [facility] Stop: 01/23/22 09:00 Last Admin: 01/23/22 06:59 Dose: 999 mls/hr Documented By: UNRA Promethazine HCl 6.25 mg/ (Sodium Chloride) 50.25 mls @ 201 mls/hr IV ONCE PRN PRN Reason: Nausea and Vomiting Ondansetron HCl (Ondansetron Hcl 4 Mg/2 Ml Vial) 4 mg IVPUSH ONCE PRN PRN Reason: Nausea and Vomiting Labs CBC & Chem 7: 01/24/22 05:11 01/24/22 05:11 Labs: Laboratory Results - last 24 hr 01/22/22 12:45 COVID-19 (ELISSA) Negative COVID-19 Clin Com See Note Procedures Date of Service Date of Service: 01/24/22 Progress Note: A&P Assessment and plan (1) Obesity: Status: Acute Assessment and Plan: s/p laparoscopic sleeve gastrectomy, lysis of adhesions repair of diaphragmatic hernia, and gastropexy Doing well Check am labs. If OK, will discharge home? (2) BMI 33.0-33.9,adult: Status: Inactive (3) Sleep apnea: Status: Acute (4) GERD (gastroesophageal reflux disease): Status: Acute (5) Arthritis: Status: Acute (6) PTSD (post-traumatic stress disorder): Status: Inactive (7) Depression: Status: Acute (8) Hypertension: Status: Acute (9) Insomnia: Status: Acute (10) Steatosis, liver: Status: Acute (11) Liver fibrosis: Status: Acute (12) S/P laparoscopic sleeve gastrectomy: Status: Acute (13) Diaphragmatic hernia: Status: Acute (14) Status post repair of paraesophageal diaphragmatic hernia: Status: Acute Time Spent With Patient Time: Total time spent is greater than 50% in coordination of care (as documented) at patient's floor/unit and/or counseling patient: Quality Stroke Does the patient have a stroke diagnosis?: No VTE Prior VTE?: No VTE Risk Level:: Surgical - moderate VTE Device Contraindication: N/A - Device Ordered VTE Drug Contraindication: Treatment Not Indicated
--- NOTE | 2022-01-23 10:51 | PM.DS ---
DS: Providers Provider Date of Service: 01/24/22 Date of admission: 01/23/22 06:55 Primary care physician: Shanique Anaya MD DS: Diagnosis Discharge Diagnosis (1) Obesity: Status: Acute (2) BMI 33.0-33.9,adult: Status: Inactive (3) Sleep apnea: Status: Acute (4) GERD (gastroesophageal reflux disease): Status: Acute (5) Arthritis: Status: Acute (6) PTSD (post-traumatic stress disorder): Status: Inactive (7) Depression: Status: Acute (8) Hypertension: Status: Acute (9) Insomnia: Status: Acute (10) Steatosis, liver: Status: Acute (11) Liver fibrosis: Status: Acute DS: Summary Hospital Course Hospital Course: ADMITTING DIAGNOSIS: morbid obesity, GERD, PTSD, depression, insomnia DISCHARGE DIAGNOSIS: same, s/p laparoscopic sleeve gastrectomy, diaphgramtic hernia and repair diaphragmatic hernia PAST SURGICAL HISTORY: none PROCEDURE: upper endoscopy, laparoscopic sleeve gastrectomy and repair of diaphragmatic hernia hernia DISCHARGE SUMMARY: History of Present Illness: The patient is a 51 year-old woman with a BMI of 36.3 kg/m2 and associated co-morbidities as described above. The patient had extensive work-up,lost 17.3 lbs preoperatively and was electively scheduled for laparoscopic, possible open sleeve gastrectomy and gastropexy. Risks and complications of the surgery were discussed with the patient in advance, particularly the possibility of , pulmonary embolism, anastomotic leak, bleeding, bowel injury, GERD, cardiac, renal or pulmonary complications. The patient understood all the risks and was in agreement with the surgical plan. Hospital Course: The patient underwent an uneventful laparoscopic sleeve gastrectomy with gastropexy and repair of diaphragmatic hernia on the day of admission. Postoperatively, the patient was transferred to the surgical floor. The patient received IV Acetaminophen and IV dilaudid for pain control. Patient was started on bariatric phase 1 diet POD #0. On postoperative day one, the patient was feeling well without nausea, vomiting, fevers, or tachycardia. The patient had some mild incisional pain and the abdomen was soft. On the morning of postoperative day one, the patient was continued on 1 ounce of water or ice every half hour. During the day, the patient did fairly well, having some incisional pain, but able to ambulate adequately and to tolerate liquids well. Since the patient is doing well, we decided that the patient was ready to be discharged. The patient was given instructions to follow-up with me next week and to call my office for any fever over 101, persistent abdominal pain, nausea, vomiting, GERD, symptoms of DVT such as calf tenderness, or leg swelling, or pulmonary embolism such as chest pain or shortness of breath. The patient was also instructed to drink 40-60 ounces of liquids per day using the 1-ounce cups. The patient had been given prescriptions for Tylenol for pain, Zofran prn for nausea, and pantoprazole and carafate previously. The patient was encouraged to ambulate and use the incentive spirometer. The patient was allowed to shower, but no baths, and encouraged to stay active at home. All of these instructions were given to the patient personally. All questions were answered and the patient understood all instructions, the instructions were also given to the patient in print. Time Spent with Patient Time attestation: Total time spent providing and/or coordinating discharge services: Discharge coordination time: Less than 30 minutes Quality: Safe Use of Opioids Does Pt have an Active Cancer Diagnosis on the Problem List?: No Quality: Stroke Does the patient have a stroke diagnosis?: No Physical Exam Vital Signs: Vital Signs: Last Vital Signs Temp 97.0 F 01/23/22 06:57 Pulse 92 01/23/22 06:57 Resp 18 01/23/22 06:57 BP 106/64 01/23/22 06:57 Pulse Ox 99 01/23/22 06:57 O2 Del Method 01/23/22 06:57 BMI result Body Mass Index 33.5 DS: Data Data Completed and Pending Pending studies at discharge: Pending at discharge 01/23/22 09:57 Surgical [PTH] Routine Labs on day of discharge: Laboratory Results - last 24 hr 01/22/22 12:45 COVID-19 (ELISSA) Negative COVID-19 Clin Com See Note Discharge Plan Discharge Anticipated Discharge Date/Time: 01/24/22 10:47 Patient Disposition: Home, Self-Care Discharge Diagnosis: s/p sleeve gastrectomy Referrals: Shanique Anaya MD [Primary Care Provider] - 1 Week Discharge Medications: Continued gabapentin 300 mg capsule 300 mg PO TID aripiprazole 15 mg tablet 15 mg PO BEDTIME topiramate 50 mg tablet 100 mg PO BEDTIME tramadol 50 mg tablet 50 mg PO DAILY melatonin 5 mg capsule 5 mg PO BEDTIME prazosin 1 mg capsule 1 mg PO BEDTIME hydroxyzine HCl 10 mg tablet 10 mg PO BEDTIME bupropion HCl 75 mg tablet 75 mg PO TID Rx Instructions: administer 6 hours apart pantoprazole 40 mg tablet,delayed release (DR/EC) 40 mg PO DAILY Qty: 30 2RF sucralfate 100 mg/mL suspension 10 ml PO BID Qty: 400 0RF ondansetron HCl 4 mg tablet 4 mg PO Q12H Qty: 20 0RF Discontinued cholecalciferol (vitamin D3) 125 mcg (5,000 unit) capsule 125 mcg PO DAILY Qty: 30 2RF mecobalamin (vitamin B12) 1,000 mcg tablet,disintegrating 1,000 mcg sublingual DAILY Qty: 30 2RF Rx Instructions: place tablet under tongue and allow to dissolve for at least30 secs before swallowing cholecalciferol (vitamin D3) 50 mcg (2,000 unit) capsule 1 cap PO QAM polyethylene glycol 3350 [Miralax] 17 gram powder in packet 17 g PO DAILY Qty: 14 0RF Rx Instructions: Mix each packet with 8oz of water and do 7 packets on 01/20/22 and another 7 packets on 01/21/22 Discharge Orders: Discharge Order (Routine); Ordered 01/24/22 Ordered By: Sudhir Casiano Diet: bariatric diet Activity on Discharge: No heavy lifting Stand Alone Forms: Patient Portal Discharge page Care Plan Goals: weight loss Health Concerns: obesity Plan of Treatment: No tub baths, sex or returning to work until discussed at first post op appointment. No exercise, alcohol, tobacco or illegal drug use. Continue to use incentive spirometer hourly while awake. Walk in home for 5- 10 minutes every 2 hours during the first week. Continue phase 1 diet today and start phase 2 diet tomorrow morning. Follow all instructions in the bariatric handbook and call with any questions. 1. Please call your doctor or come back to the emergency room should any new symptoms arise. 2. You will receive a courtesy call from [facility] 24-48 hours after discharge. 3. Activity: abstain from alcohol, practice limited stair climbing, no bending, no driving, no exercise, no illicit substances, no lifting, no sex, no tub bath, no work. 4. Diet: continue as discussed with bariatric team.. 5. Dressing Change/Wound Care: Do not change or remove surgical dressings unless they are wet or soiled. 6. Call your doctor if: - Your temperature exceeds 101.5 F - You experience excessive pain or swelling - You have an unexpected reaction to medication - You have excessive bleeding - You experience continued vomiting/nausea - Your incision begins to separate - Your incision shows signs of infection such as increased redness, swelling, excessive pain, heat, or drainage (light blood or clear fluid is normal) 7. General instructions: No lifting greater than 5 lbs for the next 4 weeks[address] driving within 24 hours of taking narcotic pain medications. If you do not move your bowels in the next 2 days, please take milk of magnesia over the counter. Please follow the post op diet and do not advance your diet until you are seen in the office in about 2 weeks. Please walk around your home every hour or two to prevent blood clots from forming in your legs. You do not need to wake from sleeping to walk. Please sleep in a bed or couch to prevent kinking at the hips and knees. Please take your incentive spirometer (your lung drug and alcohol counselor) home with you and use it for the next few days to prevent pneumonias. You may shower, no hot tubs, baths or swimming pools. Please call the office with any questions or concerns such as increasing abdominal pain, fever, chills, shortness of breath, chest pain, leg pain or swelling, or redness or drainage from your incisions. Do not hesitate to contact the office with any questions at . The patient's medical history has been reviewed and they are considered low risk for post op DVT and therefore DVT prophylaxis is not considered necessary. Travel after surgery was reviewed. The patient has not disclosed any travel plans during the first 30 days after surgery and they have been advised that within the first 30 days after surgery any bus, plane, train or car travel over 2 hours in duration is contraindicated due to the possibility of developing blood clots from immobility. Any travel, needs to include periods of ambulation of 10 minutes in duration every 2 hours. The patient was instructed to discuss any plans for travel during this period with their bariatric surgeon. Assessment: stable post op sleeve gastrectomy Discharge Date/Time: 01/24/22 09:39
[2022-01-23] MEDS: Famotidine/PF 20 MG/2 ML VIAL IVPUSH ×2 (11:14→20:06)
[2022-01-23 11:38] LABS: Hematocrit 41.2 % (42.0-52.0)
[2022-01-23 11:52] LABS: Anion Gap 13 (12-20); Blood Urea Nitrogen 12 mg/dL (9-16); Calcium 8.4 mg/dL (8.4-10.2); Carbon Dioxide 24 mmol/L (22-29); Chloride 107 mmol/L (96-108); Creatinine Clr Calc Pharmacy 73.9; Estimated Glomerular Filt Rate 59; Glucose Random 142 mg/dL (60-115); Potassium 4.5 mmol/L (3.3-5.1); Sodium 139 mmol/L (135-145)
[2022-01-23] MEDS: buPROPion HCL 75 MG TABLET PO (15:09)
[2022-01-23] MEDS: ondansetron HCL 4 MG/2 ML VIAL IVPUSH ×2 (15:09→23:35)
[2022-01-23] MEDS: 0.9 % Sodium Chloride Flush 3 ML SYRINGE IVFLUSH (20:07)
[2022-01-23] MEDS: Melatonin 3 MG TABLET 15 MG PO (20:15)
[2022-01-23] MEDS: Metoclopramide HCl 10 MG/2 ML VIAL IVPUSH (20:16)
[2022-01-24 03:04] VITALS: BP 115/72; PULSE 97; RESP 18; TEMP 36.6; O2SAT 95
[2022-01-24] MEDS: Lactated Ringers 1,000 ML 100 ML IVCONT (05:51)
[2022-01-24 05:53] LABS: MANUAL DIFF FLAG NO
[2022-01-24 06:01] LABS: Basophils Percent Auto 0.1 % (0-2); Hematocrit 39.9 % (42.0-52.0); Hemoglobin 13.5 g/dl (14.0-18.0); Imm Gran Abs Auto 0.04 X10*3/uL (0.00-0.03); Imm Gran Pct Auto 0.5 % (0.0-0.4); Lymphocytes Absolute Auto 0.9 X10*3/uL (1.2-4.9); Lymphocytes Percent Auto 10.9 % (20-40); Mean Corpuscular HGB Conc 33.8 g/dl (31.0-36.0); Mean Corpuscular Hemoglobin 29.3 pg (27.0-33.0); Mean Corpuscular Volume 86.6 fL (80.0-98.0); Mean Platelet Volume 9.8 fL (9.4-12.4); Monocytes Absolute Auto 0.8 X10*3/uL (0.1-1.2); Monocytes Percent Auto 9.1 % (2-11); Neutrophils Absolute Auto 6.7 x10*3/uL (2.0-8.3); Neutrophils Percent Auto 79.4 % (45-73); Platelet Count 238 X10*3/uL (160-400); Red Blood Count 4.61 X10*6/uL (4.60-5.80); Red Cell Distribution Width 12.8 % (11.0-16.0); White Blood Count 8.4 X10*3/uL (4.8-10.8)
[2022-01-24 06:17] LABS: Anion Gap 14 (12-20); Blood Urea Nitrogen 13 mg/dL (9-16); Calcium 8.4 mg/dL (8.4-10.2); Carbon Dioxide 22 mmol/L (22-29); Chloride 107 mmol/L (96-108); Estimated Glomerular Filt Rate > 60; Glucose Random 109 mg/dL (60-115); Potassium 4.3 mmol/L (3.3-5.1); Sodium 139 mmol/L (135-145)
[2022-01-24 07:30] VITALS: BP 114/71; PULSE 88; RESP 16; TEMP 36.7; O2SAT 96
[2022-01-24] MEDS: Famotidine/PF 20 MG/2 ML VIAL IVPUSH (08:02)
[2022-01-24] MEDS: ondansetron HCL 4 MG/2 ML VIAL IVPUSH (08:02)
--- NOTE | 2022-01-24 09:18 | MHC.CM.PN ---
This poem writer met with patient for d/c planning purposes. No services in the home prior to hospitalization. PCP verified. Patient has transport @ d/c. Plan- Home no services.
--- NOTE | 2022-01-24 11:40 | HO.POSTANES ---
Post Anesthesia Evaluation Post Anesthesia Evaluation Vital Signs: Vital Signs Temp Pulse Resp BP Pulse Ox O2 Del Method 01/24/22 07:30 98.1 F 88 16 114/71 96 Room Air 01/24/22 03:04 97.8 F 97 18 115/72 95 Room Air Anesthesia: General Endotracheal-GETA Mental Status: Awake Pain Control: Satisfactory Nausea/Vomiting: None Hydration: Adequate Anesthesia-Related Issues: No Anes. Related Issues
== END 2022-01-24 09:39 | disposition home or self-care (01) | DRG 403 ==
LOC: HO.SSSA 07:50 → HO.S3 13:03
PROVIDERS: Physician Assistant; Physician Assistant Surgical; Admitting Provider Surgery; PCP Internal Medicine; Visit Provider Surgery
PROC: 0DB64Z3 Excision of Stomach, Percutaneous Endoscopic Approach, Vertical (ICD-10-PCS; CPT 43845; principal; 2022-01-23 07:30)
DX: E66.01 Morbid (severe) obesity due to excess calories (principal); K74.00 Hepatic fibrosis, unspecified; K44.0 Diaphragmatic hernia with obstruction, without gangrene; F32.A Depression, unspecified; K76.0 Fatty (change of) liver, not elsewhere classified; Z68.33 Body mass index [BMI] 33.0-33.9, adult; F43.10 Post-traumatic stress disorder, unspecified; K21.9 Gastro-esophageal reflux disease without esophagitis; M19.90 Unspecified osteoarthritis, unspecified site; G47.30 Sleep apnea, unspecified; I10 Essential (primary) hypertension; G47.00 Insomnia, unspecified; F41.9 Anxiety disorder, unspecified; Z20.822 Contact with and (suspected) exposure to COVID-19; Z88.0 Allergy status to penicillin; Z79.899 Other long term (current) drug therapy
CPT/HCPCS: 36415; 80048; 80053; 80061; 83036; 83525; 84443; 85014; 85018; 85025; 85610; 85730; 86140; 86850; 86900; 86901; 87635; 88307; 88342; A4649; C9088; J0131; J1100; J1170; J1956; J2250; J2370; J2405; J2765; J2795; J3010

== ENCOUNTER → 2022-03-14 15:12 | Outpatient (BNVA) | payer MEDICAID, SELFPAY | PROVIDERS: PCP Internal Medicine; Visit Provider Physician Assistant Surgical | DX: Z48.815 Encounter for surgical aftercare following surgery on the digestive system (principal); E66.3 Overweight; Z98.84 Bariatric surgery status; Z98.890 Other specified postprocedural states; Z87.19 Personal history of other diseases of the digestive system; Z68.29 Body mass index [BMI] 29.0-29.9, adult | CPT/HCPCS: 99212 ==

== ENCOUNTER 2022-05-05 04:08 | Emergency (ER) | payer MEDICAID, SELFPAY ==
[2022-05-05 04:16] VITALS: BP 142/76; BP 182/102; PULSE 74; PULSE 77; RESP 20; TEMP 36.4; O2SAT 100; O2SAT 99; BMI 28.5
--- NOTE | 2022-05-05 04:45 | ED.ABDPAIN ---
HPI - Abdominal Pain General Chief Complaint: Abdominal Pain Stated Complaint: Abd Pain Time Seen by Provider: 05/05/22 04:44 Source: patient Mode of arrival: EMS Limitations: no limitations History of Present Illness HPI narrative: Patient status post gastric sleeve surgery 01/2022 drink good post surgery last night around 22:00 had ham and cheese sandwich in half an hour of that patient started complaining of pain in the upper abdomen with dry heaves pain gradually got worse feel bloated never had similar pain in the past no fever no chills no other symptoms patient has not passed any gas since the pain started Related Data Home Medications Medication Instructions Recorded Confirmed bupropion HCl 75 mg tablet 75 mg PO TID 03/21/21 03/14/22 hydroxyzine HCl 10 mg tablet 10 mg PO BEDTIME 03/21/21 03/14/22 melatonin 5 mg capsule 5 mg PO BEDTIME 03/21/21 03/14/22 prazosin 1 mg capsule 1 mg PO BEDTIME 03/21/21 03/14/22 tramadol 50 mg tablet 50 mg PO DAILY 03/21/21 03/14/22 aripiprazole 15 mg tablet 15 mg PO BEDTIME 04/20/21 03/14/22 gabapentin 300 mg capsule 300 mg PO TID 04/20/21 03/14/22 topiramate 50 mg tablet 100 mg PO BEDTIME 04/20/21 03/14/22 Previous Rx's Medication Instructions Recorded ondansetron HCl 4 mg tablet 4 mg PO Q12H nausea and vomiting 01/08/22 #20 tabs acetaminophen 500 mg/15 mL oral 500 mg (15 mL) PO QID PRN pain 01/31/22 liquid #237 mL pantoprazole 40 mg tablet,delayed 40 mg PO BID #60 tabs 03/14/22 release sucralfate 100 mg/mL oral 10 ml PO BID #400 mL 03/14/22 suspension Allergies Allergy/AdvReac Type Severity Reaction Status Date / Time Penicillins [PENICILLINS] Allergy Severe Anaphylaxis Verified 03/14/22 15:33 Review of Systems Review of Systems Yes all other systems are reviewed and are negative [facility] Past Medical History Medical History Abnormal EKG Anxiety Arthritis Back pain Bleeding hemorrhoids BMI 33.0-33.9,adult BMI 34.0-34.9,adult BMI 36.0-36.9,adult Chronic sinusitis COVID-19 vaccine series completed Cubital tunnel syndrome on right Depression GERD (gastroesophageal reflux disease) Hypertension Insomnia Lumbar disc herniation Obesity PTSD (post-traumatic stress disorder) Sleep apnea Steatosis, liver Vitamin B12 deficiency Vitamin D deficiency Surgical History H/O colonoscopy History of esophagogastroduodenoscopy (EGD) Hx of hemorrhoidectomy Social History Social History Are you a primary healthcare network consultant to a significant other at home: No Do you presently have visiting nurse or other home services: No Patient Tobacco Use Status: Never used Tobacco Advance Directives: No Advance Directives Information Provided: No service: No Physical Exam ED Vital Signs: Vital Signs - 24 hr 05/05/22 04:16 05/05/22 05:23 05/05/22 07:05 Temperature 97.6 F 98.2 F Pulse Rate 74 73 91 Respiratory Rate 20 22 H 16 Blood Pressure 142/76 H 138/94 H 145/88 H Pulse Oximetry 100 98 94 Oxygen Delivery Method Room Air Room Air Room Air BMI result Body Mass Index 28.5 Appearance: Alert. Oriented X3. In moderate distress, dry heaving Eyes: No pallor or icterus ENT: Pharynx normal. Oral Mucosa moist Neck: Normal inspection. Neck supple. CVS: Normal heart rate and rhythm. Pulses normal. Respiratory: No respiratory distress. Equal air entry bilateral, no wheezing/rales/rhonchi Abdomen: Soft tender in epigastric area of sluggish bowel sounds , no mass palpable, no CVA tenderness Skin: Skin warm and dry. Normal skin color. Normal skin turgor. Extremities: No lower extremity edema. No calf tenderness Neuro: Oriented X 3. Medical Decision Making Medical Decision Making MDM Narrative: Patient with the acute abdominal pain etiology not very clear ultrasound negative for gallbladder stones, recheck of the CT scan by Radiology is reveal small amount of air in the peritoneum not sure his postop air or something acute. Case discussed with bariatric surgeon Gaviota MEREDITH will come and evaluate the patient Lab Data MDM Lab Attestation statement: I reviewed the patient's lab results. Result Diagrams: 05/05/22 04:45 05/05/22 04:45 Labs: Lab Results 05/05/22 05/05/22 05/05/22 Range/Units 04:45 04:45 05:23 WBC 11.0 H (4.8-10.8) X10*3/uL RBC 5.45 (4.60-5.80) X10*6/uL Hgb 16.0 (14.0-18.0) g/dl Hct 47.6 (42.0-52.0) % MCV 87.3 (80.0-98.0) fL MCH 29.4 (27.0-33.0) pg MCHC 33.6 (31.0-36.0) g/dl RDW 13.5 (11.0-16.0) % Plt Count 290 (160-400) X10*3/uL MPV 9.2 L (9.4-12.4) fL Absolute Nucleated RBC 0.000 (0.0-0.012) X10*3/uL Nucleated RBC % (auto) 0.0 (0.0-0.2) /100WBC Sodium 143 (135-145) mmol/L Potassium 4.4 (3.3-5.1) mmol/L Chloride 107 (96-108) mmol/L Carbon Dioxide 24 (22-29) mmol/L Anion Gap 16 (12-20) BUN 14 (9-16) mg/dL Creatinine 1.00 (0.5-1.4) mg/dL Estim Creat Clear Calc 91.8 Estimated GFR > 60 Random Glucose 115 (60-115) mg/dL Lactic Acid 2.4 H* (0.5-2.0) mmol/L Calcium 9.1 D (8.4-10.2) mg/dL Total Bilirubin 0.5 (0.0-1.0) mg/dL Direct Bilirubin 0.2 (0.0-0.5) mg/dL AST 21 (5-37) U/L ALT 22 (0-40) U/L Alkaline Phosphatase 134 H (39-117) U/L Total Protein 7.1 (6.5-8.0) g/dL Albumin 4.4 (3.5-5.0) g/dL Lipase 20 (8-78) U/L Medications Administered Discontinued Medications Generic Name Dose Route Start Last Admin Trade Name Freq PRN Reason Stop Dose Admin Hydromorphone HCl 1 mg 05/05/22 06:16 05/05/22 06:25 Hydromorphone Hcl 1 Mg/Ml Syringe IVPUSH 05/05/22 06:17 1 mg ONCE ONE Administration Protocol Sodium Chloride 1,000 mls @ 999 mls/hr 05/05/22 04:50 05/05/22 06:06 Ns IV 05/05/22 05:50 Infused .Q1H1M ONE Infusion Sodium Chloride 1,000 mls @ 999 mls/hr 05/05/22 06:16 05/05/22 06:25 Ns IV 05/05/22 07:16 999 mls/hr .Q1H1M ONE Administration Morphine Sulfate 4 mg 05/05/22 04:50 05/05/22 04:54 Morphine Sulfate 4 Mg/Ml Cartridge IVPUSH 05/05/22 04:51 4 mg ONCE ONE Administration Protocol Ondansetron HCl 4 mg 05/05/22 04:50 05/05/22 04:54 Ondansetron Hcl 4 Mg/2 Ml Vial IVPUSH 05/05/22 04:51 4 mg ONCE ONE Administration Discharge Plan Discharge Clinical Impression: Abdominal pain Patient Disposition: Still a Patient Prescriptions: No Action gabapentin 300 mg capsule 300 mg PO TID aripiprazole 15 mg tablet 15 mg PO BEDTIME topiramate 50 mg tablet 100 mg PO BEDTIME tramadol 50 mg tablet 50 mg PO DAILY melatonin 5 mg capsule 5 mg PO BEDTIME prazosin 1 mg capsule 1 mg PO BEDTIME hydroxyzine HCl 10 mg tablet 10 mg PO BEDTIME bupropion HCl 75 mg tablet 75 mg PO TID Rx Instructions: administer 6 hours apart ondansetron HCl 4 mg tablet 4 mg PO Q12H Qty: 20 0RF acetaminophen 500 mg/15 mL liquid 500 mg PO QID PRN (Reason: pain) Qty: 237 3RF pantoprazole 40 mg tablet,delayed release (DR/EC) 40 mg PO BID Qty: 60 2RF sucralfate 100 mg/mL suspension 10 ml PO BID Qty: 400 2RF
[2022-05-05 04:51] LABS: Hematocrit 47.6 % (42.0-52.0); Mean Corpuscular HGB Conc 33.6 g/dl (31.0-36.0); Mean Corpuscular Hemoglobin 29.4 pg (27.0-33.0); Mean Corpuscular Volume 87.3 fL (80.0-98.0); Mean Platelet Volume 9.2 fL (9.4-12.4); Platelet Count 290 X10*3/uL (160-400); Red Blood Count 5.45 X10*6/uL (4.60-5.80); Red Cell Distribution Width 13.5 % (11.0-16.0)
[2022-05-05 05:22] LABS: Alanine Aminotransferase 22 U/L (0-40); Albumin Level 4.4 g/dL (3.5-5.0); Alkaline Phosphatase 134 U/L (39-117); Anion Gap 16 (12-20); Aspartate Amino Transferase 21 U/L (5-37); Bilirubin Direct 0.2 mg/dL (0.0-0.5); Bilirubin Total 0.5 mg/dL (0.0-1.0); Blood Urea Nitrogen 14 mg/dL (9-16); Calcium 9.1 mg/dL (8.4-10.2); Carbon Dioxide 24 mmol/L (22-29); Chloride 107 mmol/L (96-108); Creatinine Clr Calc Pharmacy 91.8; Estimated Glomerular Filt Rate > 60; Glucose Random 115 mg/dL (60-115); Lipase 20 U/L (8-78); Potassium 4.4 mmol/L (3.3-5.1); Sodium 143 mmol/L (135-145); Total Protein 7.1 g/dL (6.5-8.0)
[2022-05-05 05:23] VITALS: BP 138/94; PULSE 73; RESP 22; TEMP 36.8; O2SAT 98
[2022-05-05 05:44] LABS: Lactic Acid 2.4 mmol/L (0.5-2.0)
[2022-05-05 07:05] VITALS: BP 145/88; PULSE 91; RESP 16; O2SAT 94
[2022-05-05 09:29] LABS: ~Lactic Acid-LAB USE ONLY 2.1 mmol/L (0.5-2.0)
--- NOTE | 2022-05-05 10:36 | PC.NURSE ---
Pt medicated per the MAR, awaiting repeat CT scan. Call phelps within reach
[2022-05-05 12:14] LABS: ~Lactic Acid-LAB USE ONLY 1.9 mmol/L (0.5-2.0)
[2022-05-05 13:00] VITALS: BP 139/95; PULSE 73; RESP 16; TEMP 36.8; O2SAT 97
--- NOTE | 2022-05-05 13:23 | PC.NURSE ---
Pt continues to have abd pain, medicated per the MAR
--- NOTE | 2022-05-05 15:46 | PM.CNGS ---
History of Present Illness Consult details Consult date: 05/05/22 Reason for consult: abdominal pain Narrative: The patient is a 51-year-old gentleman states he is bilingual and declined an foreign language interpreter. The patient underwent a laparoscopic sleeve gastrectomy on 01/23/22 that was uneventful. He has been doing well postoperatively and was advancing his diet per instruction and yesterday ate a grilled him and she is seen with and then started to developed mid epigastric pain and heaviness. She became nausea and tried to make himself vomit but was unable to. He had progression of his abdominal pain and had no diarrhea, but given his severe pain he came to the emergency department. Patient notes that his significant other is dealing with a GI bug and is experiencing both nausea/vomiting as well as diarrhea. He is not had any vomiting or diarrhea but had significant nausea that occurred after his sandwich. At the time of evaluation at approximately 15:45, patient reports he feels much better after being hydrated. He denies any abdominal pain and reports he has some aching in his abdomen and right flank. He denies any reflux, dysphagia, odynophagia, hematemesis. The original unenhanced CT report clearly states that no free air was identified. However, our PA was contacted by the ER and told there was up possible focus of free air. In addition, there was a possible gallstone so an ultrasound of the gallbladder was performed which did not demonstrate gallstones but demonstrated a question of mild gallbladder wall edema. Repeat CT with oral and IV contrast report and images were reviewed and I reviewed the images with the help of the reading radiologist, Dr. Haro to identify an approximately 5 mm focus of possible intramuscular/intra-abdominal versus a tiny intraperitoneal bubble at 194:3. Review of Systems Review of Systems: Yes all other systems are reviewed and are negative Constitutional: Constitutional: Reports as per HPI REPLACED BY [facility] Past Medical History Medical History Abnormal EKG Anxiety Arthritis Back pain Bleeding hemorrhoids BMI 33.0-33.9,adult BMI 34.0-34.9,adult BMI 36.0-36.9,adult Chronic sinusitis COVID-19 vaccine series completed Cubital tunnel syndrome on right Depression GERD (gastroesophageal reflux disease) Hypertension Insomnia Lumbar disc herniation Obesity PTSD (post-traumatic stress disorder) Sleep apnea Steatosis, liver Vitamin B12 deficiency Vitamin D deficiency Surgical History Surgical History H/O colonoscopy History of esophagogastroduodenoscopy (EGD) Hx of hemorrhoidectomy Social History Social History Are you a primary care tech to a significant other at home: No Do you presently have visiting nurse or other home services: No Patient Tobacco Use Status: Never used Tobacco Advance Directives: No Advance Directives Information Provided: No service: No Meds Allergies Allergy/AdvReac Type Severity Reaction Status Date / Time Penicillins [PENICILLINS] Allergy Severe Anaphylaxis Verified 03/14/22 15:33 Home Medications Medication Instructions Recorded Confirmed Last Taken Type bupropion HCl 75 mg tablet 75 mg PO TID 03/21/21 03/14/22 01/22/22 History hydroxyzine HCl 10 mg tablet 10 mg PO BEDTIME 03/21/21 03/14/22 01/22/22 History melatonin 5 mg capsule 5 mg PO BEDTIME 03/21/21 03/14/22 01/22/22 History prazosin 1 mg capsule 1 mg PO BEDTIME 03/21/21 03/14/22 01/22/22 History tramadol 50 mg tablet 50 mg PO DAILY 03/21/21 03/14/22 01/22/22 History aripiprazole 15 mg tablet 15 mg PO BEDTIME 04/20/21 03/14/22 01/22/22 History gabapentin 300 mg capsule 300 mg PO TID 04/20/21 03/14/22 01/22/22 History topiramate 50 mg tablet 100 mg PO BEDTIME 04/20/21 03/14/22 01/22/22 History Physical Exam Vital Signs: Vital Signs: Last Vital Signs Temp 98.3 F 05/05/22 13:00 Pulse 73 05/05/22 13:00 Resp 16 05/05/22 13:00 BP 139/95 H 05/05/22 13:00 Pulse Ox 97 05/05/22 13:00 O2 Del Method 05/05/22 13:00 BMI result Body Mass Index 28.5 The patient is non-toxic & in good spirits NC/AT, PERRLA, EOMI Mood, affect & judgment all appear appropriate Sclera anicteric conjunctiva pink and moist Oropharynx is clear with no aphthous ulcers, mucous membranes moist Neck is supple with no masses, adenopathy or bruits Heart is regular, normal S1-S2 no rubs or murmurs Lungs are clear and equal anteriorly with no audible wheezing, rubs or dullness to percussion Abdomen is overweight with no demonstrable hernias. Abdomen is benign. No HSM, rebound, rigidity, guarding, masses or bruits are present. Rectal exam is deferred Skin has good turgor and is free of rashes Extremities free of cyanosis clubbing edema Results Labs Result diagrams: 05/05/22 04:45 05/05/22 04:45 Labs: Abnormal lab results 05/05/22 05/05/22 05/05/22 Range/Units 04:45 04:45 05:23 WBC 11.0 H (4.8-10.8) X10*3/uL MPV 9.2 L (9.4-12.4) fL Lactic Acid 2.4 H* (0.5-2.0) mmol/L Lactic Acid F/U @ 2Hr (0.5-2.0) mmol/L Alkaline Phosphatase 134 H (39-117) U/L 05/05/22 Range/Units 08:52 WBC (4.8-10.8) X10*3/uL MPV (9.4-12.4) fL Lactic Acid (0.5-2.0) mmol/L Lactic Acid F/U @ 2Hr 2.1 H* (0.5-2.0) mmol/L Alkaline Phosphatase (39-117) U/L Short CBC 05/05/22 Range/Units 04:45 WBC 11.0 H (4.8-10.8) X10*3/uL Hgb 16.0 (14.0-18.0) g/dl Hct 47.6 (42.0-52.0) % Plt Count 290 (160-400) X10*3/uL BMP 05/05/22 04:45 Sodium 143 Potassium 4.4 Chloride 107 Carbon Dioxide 24 BUN 14 Creatinine 1.00 Calcium 9.1 D Liver Function 05/05/22 Range/Units 04:45 Total Bilirubin 0.5 (0.0-1.0) mg/dL Direct Bilirubin 0.2 (0.0-0.5) mg/dL AST 21 (5-37) U/L ALT 22 (0-40) U/L Alkaline Phosphatase 134 H (39-117) U/L Albumin 4.4 (3.5-5.0) g/dL All other labs normal. Imaging Abdomen CT scan report/results: report reviewed and image reviewed CT scan - pelvis: report reviewed and image reviewed Abdominal ultrasound report/results: report reviewed and image reviewed Additional studies: Telephone conversation with Dr. Haro reviewing the ultrasound and 2nd CT was performed. Assessment and Plan (1) Abdominal pain: Status: Acute (2) Overweight: Status: Acute (3) Status post repair of paraesophageal diaphragmatic hernia: Status: Acute (4) S/P laparoscopic sleeve gastrectomy: Status: Acute (5) Insomnia: Status: Acute (6) Sleep apnea: Status: Acute Plan I communicated in person with Dr. Laguerre and with Gaviota, the bariatric PA. the patient notes that he is feeling better and has no abdominal pain, just soreness from trying to make himself vomit. Since his significant other is sick with gastroenteritis, it is possible this was his clinical manifestation of the illness. The patient is improved with hydration and we will recheck a CBC D and give him a trial of clear liquids to see if it is safe to send him home. I do not appreciate an acute surgical abdomen on exam. In addition, he has absolutely no right upper quadrant tenderness suggestive of gallbladder disease and no gallstones were identified on ultrasound or the 2nd study. No gallbladder wall edema is detected on CT which is more sensitive than ultrasound. If the patient is unable to tolerate p.o. or has an increase in his white blood cell count, he will be admitted for observation and I will re-evaluate him. Time Spent With Patient Time: Total time managing care of this patient today ____ minutes. Procedures Date of Service Date of Service: 05/05/22
[2022-05-05 16:10] LABS: MANUAL DIFF FLAG NO
[2022-05-05 16:16] LABS: Basophils Percent Auto 0.3 % (0-2); Hematocrit 44.5 % (42.0-52.0); Hemoglobin 15.2 g/dl (14.0-18.0); Imm Gran Abs Auto 0.03 X10*3/uL (0.00-0.03); Imm Gran Pct Auto 0.3 % (0.0-0.4); Lymphocytes Absolute Auto 1.6 X10*3/uL (1.2-4.9); Lymphocytes Percent Auto 14.8 % (20-40); Mean Corpuscular HGB Conc 34.2 g/dl (31.0-36.0); Mean Corpuscular Hemoglobin 29.9 pg (27.0-33.0); Mean Corpuscular Volume 87.4 fL (80.0-98.0); Mean Platelet Volume 9.4 fL (9.4-12.4); Monocytes Percent Auto 9.1 % (2-11); Neutrophils Percent Auto 75.5 % (45-73); Platelet Count 291 X10*3/uL (160-400); Red Blood Count 5.09 X10*6/uL (4.60-5.80); Red Cell Distribution Width 13.6 % (11.0-16.0); White Blood Count 10.6 X10*3/uL (4.8-10.8)
== END 2022-05-05 16:45 | disposition home or self-care (01) ==
PROVIDERS: Internal Medicine; Emergency Provider Student in an Organized Health Care Education/Training Program
DX: R10.10 Upper abdominal pain, unspecified (principal); I10 Essential (primary) hypertension; Z98.84 Bariatric surgery status
CPT/HCPCS: 36415; 74176; 74177; 76705; 80053; 82248; 83605; 83690; 85025; 85027; 96361; 96374; 96375; 96376; 99284; J1170; J2270; J2405; J3010; Q9967

== ENCOUNTER 2023-04-11 15:00 | Outpatient (RCR) | payer MEDICAID, SELFPAY | END 2023-04-29 13:19 | disposition home or self-care (01) | LOC: HO.PT 15:00 | PROVIDERS: PCP Internal Medicine; Visit Provider Internal Medicine Geriatric Medicine | DX: M54.2 Cervicalgia (principal); M54.50 Low back pain, unspecified; R07.89 Other chest pain | CPT/HCPCS: 97014; 97110; 97162 ==

== ENCOUNTER 2023-05-30 10:54 | Outpatient (REF) | payer MEDICAID, SELFPAY ==
[2023-05-30 13:47] LABS: Cholesterol 155 mg/dL (<200); HDL Cholesterol 37 mg/dL (>40); LDL Cholesterol Calculated 83 mg/dL (<100); Triglycerides 179 mg/dL (<150)
[2023-05-30 14:04] LABS: Vitamin D 25-OH Total 40.8 ng/mL (>30)
[2023-05-30 14:29] LABS: Reflex LDLD? No
[2023-05-31 03:36] LABS: Syphilis Screen Nonreactive (Nonreactive)
[2023-05-31 03:57] LABS: HBS Num1 0.22 mIU/mL (0-7.99); HBsAGNum1 0.27 S/CO (0.00-0.99); HIV AB/AG Nonreactive (Nonreactive); HIV Num 1 0.07 S/CO (0.00-0.99); Hepatitis A Antibody IgM 0.11 Index (0-0.79); Hepatitis B Core Antibody Nonreactive (Nonreactive); Hepatitis B Surface Antigen Negative (Negative); ~HepC Num1 0.15 S/CO (0.00-0.79); ~Hepatitis A Antibody IgM Nonreactive (Nonreactive); ~Hepatitis B Surface Antibody NONREACTIVE (Nonreactive); ~Hepatitis C Antibody Nonreactive (Nonreactive)
[2023-06-02 07:34] LABS: TS Negative Control Passed; TS Panel A 0; TS Panel B 0; TS Positive Control Passed; TSpotTB Negative (Negative)
== END 2023-05-30 10:55 | disposition home or self-care (01) ==
LOC: HO.HHCL 10:54
PROVIDERS: Visit Provider Internal Medicine
DX: Z00.00 Encounter for general adult medical examination without abnormal findings (principal); N52.9 Male erectile dysfunction, unspecified; E66.9 Obesity, unspecified; F41.9 Anxiety disorder, unspecified; Z20.2 Contact with and (suspected) exposure to infections with a predominantly sexual mode of transmission; Z11.1 Encounter for screening for respiratory tuberculosis
CPT/HCPCS: 36415; 80061; 82306; 86481; 86704; 86706; 86709; 86780; 86803; 87340; 87389

== ENCOUNTER 2023-09-18 14:46 | Outpatient (AMB) | payer MEDICAID, SELFPAY ==
--- NOTE | 2023-09-18 14:54 | A.OFFVIS_ITS ---
Vital Signs 09/18/23 14:57 Height 5 ft 7 in Weight 189 lb 9.561 oz BMI 29.7 BP 106/60 Blood Pressure Location Lt brachial Position Sitting Pulse 87 Intake Visit Reasons: Tubular adenoma of colon Intake Note: Gianni presents in the office as a new patient. CC: states that he feels he needs his prostate checked. He has issues to urinate and he feels swollen at times. Sometimes he has issues with BMs but not as frequent and he does have issues with hemorrhoids. Hx of hemorrhoids banding that did not go well. 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 Pt reports main issue is anal discomfort and bleeding AK which he reckons is from hemorrhoids. Has had banding once before in 2018 but reports recurrence soon after. Now has to manually reduce them. Last colo was in 2017 - had tubular adenomas (per documentation from [facility]), advised repeat colo in 2022. [facility] Medical History Steatosis, liver Insomnia Hypertension Anxiety BMI 33.0-33.9,adult Bleeding hemorrhoids BMI 34.0-34.9,adult Abnormal EKG Vitamin B12 deficiency Vitamin D deficiency BMI 36.0-36.9,adult Obesity COVID-19 vaccine series completed Sleep apnea Lumbar disc herniation Chronic sinusitis Depression Arthritis Back pain GERD (gastroesophageal reflux disease) PTSD (post-traumatic stress disorder) Cubital tunnel syndrome on right Surgical History History of esophagogastroduodenoscopy (EGD) H/O colonoscopy Hx of hemorrhoidectomy Social History Are you a primary patient care assistant to a significant other at home: No Do you presently have visiting nurse or other home services: No Patient Tobacco Use Status: Never used Tobacco service: No Review of Systems Const All systems reviewed & are unremarkable except as noted in HPI and below Physical Exam Vital Signs: Last Vital Signs Pulse 87 09/18/23 14:57 BP 106/60 09/18/23 14:57 BMI result Body Mass Index 29.7 NAD Nonicteric ABd soft, nontender Rectal (Alexandria Schaefer MA present as lapeler): one ext hemorrhoid, large int hemor rhoids on digital exam. No fissure noted. Assessment & Plan Assessment & Plan (1) Personal history of colonic polyps: Code(s): Z86.010 - Personal history of colonic polyps Category: Medical (2) Bright red rectal bleeding: Code(s): K62.5 - Hemorrhage of anus and rectum Category: Medical Plan BRBPR likely 2/2 bleeding int hemorrhoids. Will book for a colo for which he is due any way due to hx of polyps. Pt also wonders about a Urology referral for LUTS - he was advised to contact his PCP for referral. Plan: - CBC to eval for any anemia - [place] to be booked - PEG prep instructions reviewed Follow up after colo. Orders: Orders Complete Blood Count no Diff Today K62.5 - Hemorrhage of anus and rectum Medications: New peg 3350-electrolytes 236-22.74-6.74 -5.86 gram (Golytely) as per split prep instructions, until fecal effluent is clear 240 mL PO Q10M 4,000 mL 0RF colonoscopy Coding Level of Care Code New Pt Level 4 (09377) Diagnoses Personal history of colonic polyps Z86.010 Bright red rectal bleeding K62.5
[2023-09-18 14:57] VITALS: BP 106/60; PULSE 87; BMI 29.7
== END 2023-09-18 15:34 | disposition home or self-care (01) ==
PROVIDERS: PCP Internal Medicine; Referring Provider Internal Medicine; Visit Provider Internal Medicine
DX: Z86.010 Personal history of colon polyps (principal); K62.5 Hemorrhage of anus and rectum
CPT/HCPCS: 99204

== ENCOUNTER 2023-09-18 14:46 | Outpatient (REF) | payer MEDICAID, SELFPAY ==
[2023-09-18 18:55] LABS: Hemoglobin 15.7 g/dl (14.0-18.0); Mean Corpuscular HGB Conc 34.9 g/dl (31.0-36.0); Mean Corpuscular Hemoglobin 31.3 pg (27.0-33.0); Mean Corpuscular Volume 89.6 fL (80.0-98.0); Mean Platelet Volume 9.5 fL (9.4-12.4); Platelet Count 280 X10*3/uL (160-400); Red Blood Count 5.02 X10*6/uL (4.60-5.80); Red Cell Distribution Width 12.4 % (11.0-16.0)
== END 2023-09-18 14:47 | disposition home or self-care (01) ==
LOC: HO.LAB 14:46
PROVIDERS: PCP Internal Medicine; Visit Provider Internal Medicine
DX: K62.5 Hemorrhage of anus and rectum (principal); Z86.010 Personal history of colon polyps
CPT/HCPCS: 36415; 85027; 99202

== ENCOUNTER 2023-11-22 09:15 | Outpatient (REF) | payer MEDICAID, SELFPAY ==
[2023-11-22 12:03] LABS: Prostate Specific Antigen 0.91 ng/mL (<0.05-4.0)
== END 2023-11-22 09:16 | disposition home or self-care (01) ==
LOC: HO.HHCL 09:15
PROVIDERS: Visit Provider Emergency Medicine
DX: Z12.5 Encounter for screening for malignant neoplasm of prostate (principal); R39.15 Urgency of urination
CPT/HCPCS: 36415; 84153

== ENCOUNTER 2025-05-04 16:25 | Outpatient (REF) | payer MEDICAID, SELFPAY ==
--- NOTE | ~2025-05-04 | XR_ITS ---
EXAMINATION: XR SHOULDER, RIGHT CLINICAL INFORMATION: right shoudler tendinitis COMPARISON: None available. TECHNIQUE: AP external rotation, Grashey, scapular Y, and axillary views of the right shoulder. FINDINGS: There is mild elevation of the distal clavicle the AC joint. Minute marginal osteophyte is visible in the medial humeral head. There is no glenohumeral dislocation. Short curvilinear calcification or ossification is present near the lateral aspect of the greater tuberosity on the Grashey view. 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 Electronically signed by: Naun Otoole MD 05/04/2025 04:54 PM EST
--- OUTSIDE RECORDS SUMMARY | 2025-05-04 17:03 | XMS_ITS | Encounter Summary ---
Author Organization [employer] Address [address] [place] [address] Care Team Providers Care Magneto Electrician Name Role Phone Shanique Anaya MD Primary Care Provider + Reason for Visit * Reason Comments Med Refill Encounter Details Date Type Department Care Team ([facility] st Contact Info) Description 06/17/2023 Refill [facility] [address] [place], [place] [phone] Shanique Anaya MD [address] [place], [place] [phone] Uncomplicated asthma, unspecified asthma severity, unspecified whether persistent Social History Tobacco Use Types Packs/Day Years Used Date Smoking Tobacco: Never Alcohol Use Standard Drinks/Week Comments Never 0 (1 standard drink = 0.6 oz pur e alcohol) Alcohol Answer Date Recorded Frequency of Alcohol Consumption Not on file 05/30/2023 Average Number of Drinks Not on file 024 Frequency of Binge Drinking Not on file 05/13 Score 0 05/30/2023 Depression Answer Date Recorded Patient Health Questionnaire-9 Score 24 05/30/2023 Patient Health Questionnaire-9 Score 24 05/30/2023 Last PHQ-9: Questionnaire Data Not on file 0 05/30/2023 Housing Stability Answer Date Recorded What is your housing situation today? I have jane francis 05/30/[address] you li ve. Do you have problems with any of the following? None of the above 05/30/2023 Food Insecurity Answer Date Recorded Within the past 12 months, y ou worried that your food would run out before you got money to buy more: Never True 03/04/2023 Within the past 12 months,th e food you bought just didn't last and you didn't have enough money to get more: Never True Transportation Answer Date Recorded In the past 12 months, has l ack of transportation kept you from medical appts, meetings, work or from getting things needed for daily living? No 03/04/2023 Utilities Answer Date Recorded In the past 12 months, has t he electric, gas, oil or water company threatened to shut off services in your home? No 03/04/2023 Depression Answer Date Recorded Patient Health Questionnaire-2 Score 6 05/30/2023 Sex and Gender Information Value Date Recorded Sex Assigned at Male 03/12/2022 10:34 AM EDT Legal Sex Male 10:34 AM EDT Gender Identity Male 03/12/2022 10:34 AM EDT Sexual Orientation Choose not to disclose 2021 10:34 AM EDT documented as of this encounter Plan of Treatment Upcoming Encounters Date Type Department Care Team (Late st Contact Info) Description 07/12/2025 3:00 PM EST Office Visit [facility] [address] [place] [address] [place], Latia, OD [address] [place], [place] [phone] documented as of this encounter Visit Diagnoses Diagnosis Uncomplicated asthma, unspecified asthma severity, unspecified whether persistent documented in this encounter Additional Health Concerns Assessment Noted Time PHQ-9 Depression Total Score: 24 024 9:56 AM EST documented as of this encounter Care Teams Magneto Electrician Relationship Specialty Start Date End Date Shanique Anaya MD [address] [place] [address] PCP - General Family Medicine 12/05/17 Kristi Pat Rn RecoveryClutch Specialist 06/24/23 Kristi Pat Rn [employer] Specialist 07/16/24 documented as of this encounter
--- OUTSIDE RECORDS SUMMARY | 2025-05-04 17:03 | XMS_ITS | Encounter Summary ---
Author Organization [employer] Address [address] [place] [address] Care Team Providers Care Currency Exchange Specialist Name Role Phone Shanique Anaya MD Primary Care Provider + Reason for Visit * Reason Onset Date Comments Med Refill 07/08/2023 Encounter Details Date Type Department Care Team (Late st Contact Info) Description 07/08/2023 Refill [facility] MED[facility] [address] [place], [place] [phone] Shanique Anaya MD [address] [place] [address] Seasonal allergies; Viral upper respiratory tract infection; Lumbar disc herniation with radiculopathy Social History Tobacco Use Types Packs/Day Years [...] What is your housing situation today? I do not have housing (Staying with others, in a hotel, in a correction, living outside on the street, on a beach, in a car, or in a park 06/26/[address] you li ve. Do you have problems with any of the following? None of the above 06/26/2023 Food Insecurity Answer Date Recorded Within the [...] Description 07/12/2025 3:00 PM EST Office Visit [facility] [address] [place], [place] [phone] Latia Whitehead, OD [address] [place] [address] documented as of this encounter Visit Diagnoses Diagnosis Seasonal allergies Allergic rhinitis, cause unspecified Viral upper respiratory tract infection Acute upper respiratory infections of unspecified site Lumbar disc herniation with radiculopathy Displacement of lumbar intervertebral disc without myelopathy documented in this encounter Additional Health Concerns Assessment Noted Time PHQ-9 Depression Total Score: 24 024 9:56 AM EST documented as of this encounter Care Teams Currency Exchange Specialist Relationship Specialty Start Date End Date Shanique Anaya MD [address] [place] [address] PCP - General Family Medicine 12/05/17 Kristi Pat Confectionery Maker[employer] House Supervisor 2/12/24 Kristi Pat Confectionery [employer] House Supervisor 07/16/24 documented as of this encounter
--- OUTSIDE RECORDS SUMMARY | 2025-05-04 17:03 | XMS_ITS | Encounter Summary ---
Author Organization [employer] Address [address] 7t [place] [address] Care Team Providers Care Lamp Wirer Name Role Phone Shanique Anaya MD Primary Care Provider + Reason for Visit * Reason Onset Date Comments Med Refill 07/08/2023 Encounter Details Date Type Department Care Team ([facility] st Contact Info) Description 07/08/2023 Refill [facility] MED & PEDS [address] [place], [place] [phone] Shanique Anaya MD [address] [place] [address] Viral upper respiratory tract infection Social History Tobacco Use Types Packs/Day Years [...] with others, in a hotel, in a skilled nursing, living outside on the street, on a [...] Description 07/12/2025 3:00 PM EST Office Visit [facility] [address] [place] [address] Latia Whitehead, OD [address] [place] [address] documented as of this encounter Visit Diagnoses Diagnosis Viral upper respiratory tract infection Acute upper respiratory infections of unspecified site documented in this encounter Additional Health Concerns Assessment Noted Time PHQ-9 Depression Total Score: 24 024 9:56 AM EST documented as of this encounter Care Teams Lamp Wirer Relationship Specialty Start Date End Date Shanique Anaya MD [address] [place] [address] PCP - General Family Medicine 12/05/17 Kristi Pat Production Assembly SupervisorGage Maker 06/24/23 Kristi Pat Production Assembly SupervisorGage Maker 07/16/24 documented as of this encounter"
--- OUTSIDE RECORDS SUMMARY | 2025-05-04 17:03 | XMS_ITS | Encounter Summary ---
Author Organization [employer] Address [address] [facility] 7t [place] [address] Care Team Providers Care Field Supervisor Name Role Phone Shanique Anaya MD Primary Care Provider + Reason for Visit * Reason Comments Med Refill Encounter Details Date Type Department Care Team ([facility] st Contact Info) Description 06/07/2023 Refill [facility] MEDICINE [address] [place], [place] [phone] Shanique Anaya MD [address] [place], [place] [phone] Pain Social History Tobacco Use Types Packs/Day Years [...] Description 07/12/2025 3:00 PM EST Office Visit [facility] OPTOMETRY [address] [place], [place] [phone] Ventura, Latia, OD [address] [place] [address] documented as of this encounter Visit Diagnoses Diagnosis Pain Generalized pain documented in this encounter Additional Health Concerns Assessment Noted Time PHQ-9 Depression Total Score: 24 024 9:56 AM EST documented as of this encounter Care Teams Field Supervisor Relationship Specialty Start Date End Date Shanique Anaya MD [address] [place] [address] PCP - General Family Medicine 12/05/17 Kristi Pat Shirt CreaserNecktie Turner 06/24/23 Kristi Pat Shirt CreaserNecktie Turner 07/16/24 documented as of this encounter
--- OUTSIDE RECORDS SUMMARY | 2025-05-04 17:03 | XMS_ITS | Encounter Summary ---
Author Organization [employer] Address [address] [place] [address] Care Team Providers Care Business Intelligence Manager Name Role Phone Shanique Anaya MD Primary Care Provider + Reason for Visit * Reason Onset Date Comments Med Refill 05/15/2023 Encounter Details Date Type Department Care Team (Late st Contact Info) Description 05/15/2023 Refill [facility] MED & PEDS [address] [place], [place] [phone] Shanique Anaya MD [address] [place] [address] Seasonal allergies Social History Tobacco Use Types Packs/Day Years Used Date Smoking Tobacco: Never Alcohol Use Standard Drinks/Week Comments Never 0 (1 standard drink = 0.6 oz pur e alcohol) Depression Answer Date Recorded Patient Health Questionnaire-9 Score 16 12/04/2022 Housing Stability Answer Date Recorded What is your housing situation today? I do not have housing (Staying with others, in a hotel, in a group home, living outside on the street, on a beach, in a car, or in a park 02/19/[address] you li ve. Do you have problems with any of the following? None of the above 02/19/2023 Food Insecurity Answer Date Recorded Within the [...] Date Recorded Patient Health Questionnaire-2 Score 6 12/04/2022 Sex and Gender Information Value Date Recorded [...] Description 07/12/2025 3:00 PM EST Office Visit [facility] OPTOMETRY [address] [place] [address] Ventura, Latia, OD [address] [place] [address] documented as of this encounter Visit Diagnoses Diagnosis Seasonal allergies Allergic rhinitis, cause unspecified documented in this encounter Additional Health Concerns Assessment Noted Time PHQ-9 Depression Total Score: 16 023 10:43 AM EDT documented as of this encounter Care Teams Business Intelligence Manager Relationship Specialty Start Date End Date Shanique Anaya MD [address] [place] [address] PCP - General Family Medicine 12/05/17 Kristi Pat Haz TechApplication Designer 06/24/23 Kristi Pat Haz TechApplication Designer 07/16/24 documented as of this encounter
--- OUTSIDE RECORDS SUMMARY | 2025-05-04 17:03 | XMS_ITS | Encounter Summary ---
Author Organization [employer] Address [address] [facility] 7[address] [place] [address] Care Team Providers Care Professor Of Management Name Role Phone Shanique Anaya MD Primary Care Provider + Encounter Details Date Type Department Care Team (Late st Contact Info) Description 10/31/2022 Orders Only [facility] MED & PEDS [address] [place], [place] [phone] Katlin Cruz LPN Social History Tobacco Use Types Packs/Day Years Used Date Smoking Tobacco: Never Assessed Sex and Gender Information Value Date Recorded [...] Description 07/12/2025 3:00 PM EST Office Visit [facility] OPTOMETRY [address] [place], [place] [phone] Latia Whitehead, OD [address] [place] [address] documented as of this encounter Procedures Procedure Name Priority Date/Time Associated Diagnosis Comments CBC Routine 09/18/2023 3:55 PM EDT documented in this encounter Results * CBC (09/18/2023 3:55 PM EDT) White Blood Count 5.0 4.8 - 10.8 X10*3/uL [facility] Red Blood Count 5.02 4.60 - 5.80 X10*6/uL [facility] Hemoglobin 15.7 14.0 - 18.0 g/dl [facility] Hematocrit 45.0 42.0 - 52.0 % [facility] Mean Corpuscular Volume 89.6 80.0 - 98.0 fL [facility] Mean Corpuscular Hemoglobin 31.3 27.0 - 33.0 pg [facility] Mean Corpuscular HGB Conc 34.9 31.0 - 36.0 g/dl [facility] Red Cell Distribution Width 12.4 11.0 - 16.0 % [facility] Platelet Count 280 160 - 400 X10*3/uL [facility] Mean Platelet Volume 9.5 9.4 - 12.4 fL [facility] NRBC Pct Auto 0.0 0.0 - 0.2 /100WBC [facility] NRBC Abs Auto 0.000 0.0 - 0.012 X10*3/uL [facility] 09/18/2023 3:55 PM EDT 09/18/2023 3:55 PM EDT us Generic External Data Provider LAB BLOOD ORDERAB LES Final Result [facility] [address] [place] [address] [phone] documented in this encounter Visit Diagnoses Not on filedocumented in this encounter Care Teams Professor Of Management Relationship Specialty Start Date End Date Shanique Anaya MD [address] [place] [address] PCP - General Family Medicine 12/05/17 Kristi Pat Junior Linux AdministratorGyroscope Repairer 06/24/23 Kristi Pat Junior Linux AdministratorGyroscope Repairer 07/16/24 documented as of this encounter
--- OUTSIDE RECORDS SUMMARY | 2025-05-04 17:03 | XMS_ITS | Encounter Summary ---
Author Organization [employer] Address [address] [facility] 7[address] [place] [address] Care Team Providers Care Violin Maker Hand Name Role Phone Shanique Anaya MD Primary Care Provider + Reason for Visit * Reason Comments Med Refill Encounter Details Date Type Department Care Team (Late st Contact Info) Description 05/15/2023 Refill [facility] MEDICINE [address] [place], [place] [phone] Shanique Anaya MD [address] [place], [place] [phone] Pain; Lumbar disc herniation with radiculopathy Social History [...] with others, in a hotel, in a half-way, living outside on the street, on a [...] Description 07/12/2025 3:00 PM EST Office Visit [facility] OPTOMETRY [address] [place] [address] Ventura, Latia, OD [address] [place] [address] documented as of this encounter Visit Diagnoses Diagnosis Pain Generalized pain 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
--- OUTSIDE RECORDS SUMMARY | 2025-05-04 17:03 | XMS_ITS | Encounter Summary ---
Author Organization [employer] Address [address] [facility] [address] [place] [address] Care Team Providers Care Cleaning Manager Name Role Phone Shanique Anaya MD Primary Care Provider + Reason for Visit * Reason Onset Date Comments Med Refill 05/15/2023 Encounter Details Date Type Department Care Team (Late st Contact Info) Description 05/15/2023 Refill [facility] MEDICINE [address] [place], [place] [phone] Lou Ingram MD [address] [place] [address] Social History Tobacco Use Types Packs/Day Years Used Date Smoking Tobacco: Never Alcohol Use Standard Drinks/Week Comments Never 0 (1 standard drink = 0.6 oz pur e alcohol) Depression Answer Date Recorded Patient Health Questionnaire-9 Score 16 12/04/2022 Housing Stability Answer Date Recorded What is your housing situation today? I do not have housing (Staying with others, in a hotel, in a custodial, living outside on the street, on a [...] Description 07/12/2025 3:00 PM EST Office Visit [facility] OPTOMETRY [address] [place] [address] Ventura, Latia, OD [address] [place] [address] documented as of this encounter Visit Diagnoses Not on filedocumented in this encounter Additional Health Concerns Assessment Noted Time PHQ-9 Depression Total Score: 16 023 10:43 AM EDT documented as of this encounter Care Teams Cleaning Manager Relationship Specialty Start Date End Date Shanique Anaya MD [address] [place] [address] PCP - General Family Medicine 12/05/17 Kristi Pat Professor Of Physical EducationHouse Principal 06/24/23 Kristi Pat Professor Of Physical EducationHouse Principal 07/16/24 documented as of this encounter
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
--- OUTSIDE RECORDS SUMMARY | 2025-05-04 17:03 | XMS_ITS | Encounter Summary ---
Author Organization [email or web address] Address 75 [facility] 7t [place] [address] Care Team Providers Care Radio Interference Investigator Name Role Phone Shanique Anaya MD Primary Care Provider + Reason for Visit * Reason Onset Date Comments Med Refill 03/22/2023 Encounter Details Date Type Department Care Team (Late st Contact Info) Description 03/22/2023 Refill [facility] [address] [place], [place] [phone] Shanique Anaya MD 230 [place] [address] Lumbar disc herniation with radiculopathy Social History [...] with others, in a hotel, in a long-term, living outside on the street, on a [...] 3:00 PM EST Office Visit [facility] [address] [place] [address] Ventura, Megan, OD 230 [place] [address] documented as of this encounter Visit Diagnoses Diagnosis Lumbar disc herniation with radiculopathy Displacement of lumbar intervertebral disc without myelopathy documented in this encounter Additional Health Concerns Assessment Noted Time PHQ-9 Depression Total Score: 16 023 10:43 AM EDT documented as of this encounter Care Teams Radio Interference Investigator Relationship Specialty Start Date End Date Shanique Anaya MD 230 [place] [address] PCP - General Family Medicine 12/05/17 Kristi Pat Establishment GuidePower Transformer Inspector 06/24/23 Kristi Pat Establishment GuidePower Transformer Inspector 07/16/24 documented as of this encounter
--- OUTSIDE RECORDS SUMMARY | 2025-05-04 17:03 | XMS_ITS | Encounter Summary ---
Author Organization [employer] Address 75 [facility] 7t [place] [address] Care Team Providers Care Air Conditioner Installer Helper Name Role Phone Shanique Anaya MD Primary Care Provider + Encounter Details Date Type Department Care Team ([facility] st Contact Info) Description 02/15/2023 Abstract [facility] 230 [place], [place] [phone] Name, MD Wojciech [address] [place] [address] Social History Tobacco Use Types Packs/Day Years [...] got money to buy more: Never True 02/19/2023 Within the past 12 months,th e food you bought just didn't last and you didn't have enough money to get more: Never True 02/2023 Transportation Answer Date Recorded In the past 12 months, has l ack of transportation kept you from medical appts, meetings, work or from getting things needed for daily living? No 02/19/2023 Utilities Answer Date Recorded In the past 12 months, has t he electric, gas, oil or water company threatened to shut off services in your home? No 02/19/2023 Depression Answer Date Recorded Patient Health Questionnaire-2 [...] Description 07/12/2025 3:00 PM EST Office Visit [facility] [address] [place], [place] [phone] Ventura, Megan, OD 230 [place] [address] documented as of this encounter Visit Diagnoses Not on filedocumented in this encounter Additional Health Concerns Assessment Noted Time PHQ-9 Depression Total Score: 16 023 10:43 AM EDT documented as of this encounter Care Teams Air Conditioner Installer Helper Relationship Specialty Start Date End Date Shanique Anaya MD 230 [place] [address] PCP - General Family Medicine 12/05/17 Kristi Pat AutotransfusionistCreative Writer 06/24/23 Kristi Pat AutotransfusionistCreative Writer 07/16/24 documented as of this encounter
--- OUTSIDE RECORDS SUMMARY | 2025-05-04 17:03 | XMS_ITS | Encounter Summary ---
Author Organization [employer] Address 75 [facility] 7t [place] [address] Care Team Providers Care Glass Toughening Operator Name Role Phone Shanique Anaya MD Primary Care Provider + Encounter Details Date Type Department Care Team (Late Contact Info) Description 10/25/2022 Abstract [facility] 230 [place] [address] Shanique Anaya MD 230 [place] [address] Social History Tobacco Use Types Packs/Day Years [...] Encounters Date Type Department Care Team (Late Contact Info) Description 07/12/2025 3:00 PM EST Office Visit [facility] [address] [place] [address] Ventura, Latia, OD 230 [place] [address] documented as of this encounter Visit Diagnoses Not on filedocumented in this encounter Care Teams Glass Toughening Operator Relationship Specialty Start Date End Date Shanique Anaya MD 230 [place] [address] PCP - General Family Medicine 12/05/17 Kristi Pat Party Plan SalespersonFuneral Attendant 06/24/23 Kristi Pat Party Plan SalespersonFuneral Attendant 07/16/24 documented as of this encounter
--- OUTSIDE RECORDS SUMMARY | 2025-05-04 17:03 | XMS_ITS | Encounter Summary ---
Author Organization [employer] Address 75 [facility] 7t [place] [address] Care Team Providers Care Rag Boiler Name Role Phone Shanique Anaya MD Primary Care Provider + Reason for Visit * Reason Comments Med Refill Encounter Details Date Type Department Care Team (Late st Contact Info) Description 05/04/2025 Refill [facility] 230 [place], [place] [phone] Lou Ingram MD 230 [place] [address] Low back pain, unspecified Social History Tobacco Use Types Packs/Day Years Used Date Smoking Tobacco: Never Passive Smoke Exposure: Never Smokeless Tobacco: Never Alcohol Use Standard Drinks/Week Comments [...] 3:00 PM EST Office Visit [facility] [address] [place], [place] [phone] Latia [place], OD 230 [place] [address] documented as of this encounter Visit Diagnoses Diagnosis Low back pain, unspecified documented in this encounter Additional Health Concerns Assessment Noted Time PHQ-9 Depression Total Score: 0 03/27/20 24 12:29 PM EST documented as of this encounter Care Teams Rag Boiler Relationship Specialty Start Date End Date Shanique Anaya MD [address] [place], [place] [phone] PCP - General Family Medicine 12/05/17 Kristi Pat Oceanography ProfessorRun Boat Operator 06/24/23 Kristi Pat Oceanography ProfessorRun Boat Operator 07/16/24 documented as of this encounter
--- OUTSIDE RECORDS SUMMARY | 2025-05-04 17:03 | XMS_ITS | Encounter Summary ---
Author Organization [employer] Address 75 [facility] 7t [place] [address] Care Team Providers Care Gate Tender Name Role Phone Shanique Anaya MD Primary Care Provider + Encounter Details Date Type Department Care Team ([facility] st Contact Info) Description 02/15/2023 Abstract [facility] 230 [place], [place] [phone] Name, MD Wojciech 230 [place] [address] Social History Tobacco Use Types Packs/Day Years Used Date Smoking Tobacco: Never Alcohol Use Standard Drinks/Week Comments Never 0 (1 standard drink = 0.6 oz pur e alcohol) Depression Answer Date Recorded Patient Health Questionnaire-9 Score 16 12/04/2022 Housing Stability Answer Date Recorded What is your housing situation today? I do not have housing (Staying with others, in a hotel, in a retirement, living outside on the street, on a [...] Description 07/12/2025 3:00 PM EST Office Visit [facility] [address] [place], [place] [phone] Ventura, Megan, OD 230 [place] [address] documented as of this encounter Visit Diagnoses Not on filedocumented in this encounter Additional Health Concerns Assessment Noted Time PHQ-9 Depression Total Score: 16 023 10:43 AM EDT documented as of this encounter Care Teams Gate Tender Relationship Specialty Start Date End Date Shanique Anaya MD 230 [place] [address] PCP - General Family Medicine 12/05/17 Kristi Pat Sports Management InternProcess Excellence Manager 06/24/23 Kristi Pat Sports Management InternProcess Excellence Manager 07/16/24 documented as of this encounter
--- OUTSIDE RECORDS SUMMARY | 2025-05-04 17:04 | XMS_ITS | Encounter Summary ---
Author Organization [employer] Address [address] [facility] [address] 7[address] [place] [address] Care Team Providers Care Bag Bundler Name Role Phone Shanique Anaya MD Primary Care Provider + Encounter Details Date Type Department Care Team (Late st Contact Info) Description 09/24/2023 Orders Only [facility] 230 [place] [address] Provider, MD Nolan Social History Tobacco Use Types Packs/Day Years [...] with others, in a hotel, in a assisted, living outside on the street, on a [...] Upcoming Encounters Date Type Department Care Team ([facility] st Contact Info) Description 07/12/2025 3:00 PM EST Office Visit [facility] [address] [place], [place] [phone] Latia Whitehead, OD 230 [place] [address] documented as of this encounter Procedures Procedure Name Priority Date/Time Associated Diagnosis Comments HM COLONOSCOPY Routine 06/11/2017 7:43 AM EST documented in this encounter Results * Hm Colonoscopy (06/11/2017 7:43 AM EST) us Historical Provider HEALTH MAINTENANCE Final Result documented in this encounter Visit Diagnoses Not on filedocumented in this encounter Additional Health Concerns Assessment Noted Time PHQ-9 Depression Total Score: 24 024 9:56 AM EST documented as of this encounter Care Teams Bag Bundler Relationship Specialty Start Date End Date Shanique Anaya MD 230 [place], [place] [phone] PCP - General Family Medicine 12/05/17 Kristi Pat Ultrasound Applications SpecialistUnload Associate 06/24/23 Kristi Pat Ultrasound Applications SpecialistUnload Associate 07/16/24 documented as of this encounter
--- OUTSIDE RECORDS SUMMARY | 2025-05-04 17:04 | XMS_ITS | Encounter Summary ---
Author Organization [employer] Address 75 [facility] 7t [place] [address] Care Team Providers Care National Guard Member Name Role Phone Shanique Anaya MD Primary Care Provider + Encounter Details Date Type Department Care Team (Late st Contact Info) Description 08/06/2022 Orders Only [facility]INE 230 [place] [address] Tiki Merchant LPN Social History Tobacco Use Types Packs/Day [...] Office Visit [facility] [address] [place] [address] Latia Whitehead, OD 230 [place] [address] documented as of this encounter Visit Diagnoses Not on filedocumented in this encounter Care Teams National [employer] Member Relationship Specialty Start Date End Date Shanique Anaya MD 230 [place] [address] PCP - General Family Medicine 12/05/17 Kristi Pat Cloth Shearing SupervisorSenior Structural Engineer 06/24/23 Kristi Pat Cloth Shearing SupervisorSenior Structural Engineer 07/16/24 documented as of this encounter
--- OUTSIDE RECORDS SUMMARY | 2025-05-04 17:04 | XMS_ITS | Encounter Summary ---
Author Organization [employer] Address 75 [facility] 7t [place] [address] Care Team Providers Care Bowling Floor Manager Name Role Phone Shanique Anaya MD Primary Care Provider + Encounter Details Date Type Department Care Team (Late st Contact Info) Description 07/04/2022 Orders Only [facility]C MED & PEDS [address] [place] [address] Katlin Cruz LPN Social History Tobacco Use [...] 3:00 PM EST Office Visit [facility] OPTOMET[facility] [address] [place] [address] Latia Whitehead, OD 230 [place] [address] documented as of this encounter Visit Diagnoses Not on filedocumented in this encounter Care Teams Bowling Floor Manager Relationship Specialty Start Date End Date Shanique Anaya MD 230 [place] [address] PCP - General Family Medicine 12/05/17 Kristi Pat Bean WeigherCentral Service Technician 06/24/23 Kristi Pat Bean WeigherCentral Service Technician 07/16/24 documented as of this encounter
--- OUTSIDE RECORDS SUMMARY | 2025-05-04 17:04 | XMS_ITS | Encounter Summary ---
Author Organization [employer] Address [address] [facility] [address] 7t [place] [address] Care Team Providers Care Armor Reconnaissance Vehicle Crewman Name Role Phone Shanique Anaya MD Primary Care Provider + Reason for Visit * Reason Onset Date Comments Med Refill 09/02/2024 Encounter Details Date Type Department Care Team (Late st Contact Info) Description 09/02/2024 Refill [facility] 230 [place], [place] [phone] Ibrahima Taveras MD 230 [place], [place] [phone] Social History Tobacco Use Types Packs/Day Years [...] Description 07/12/2025 3:00 PM EST Office Visit [facility] [address] [place] [address] Latia Whitehead, OD 230 [place] [address] documented as of this encounter Visit Diagnoses Not on filedocumented in this encounter Additional Health Concerns Assessment Noted Time PHQ-9 Depression Total Score: 0 03/27/20 24 12:29 PM EST documented as of this encounter Care Teams Armor Reconnaissance Vehicle Crewman Relationship Specialty Start Date End Date Shanique Anaya MD 230 [place] [address] PCP - General Family Medicine 12/05/17 Kristi Pat Back Up Machine OperatorManager Of Environmental Services 06/24/23 Kristi Pat Back Up Machine OperatorManager Of Environmental Services 07/16/24 documented as of this encounter
--- OUTSIDE RECORDS SUMMARY | 2025-05-04 17:04 | XMS_ITS | Encounter Summary ---
Author Organization [employer] Address [address] [facility] [address] [place] [address] Care Team Providers Care Open Hearth Laborer Name Role Phone Shanique Anaya MD Primary Care Provider + Reason for Visit * Reason Comments Med Refill Encounter Details Date Type Department Care Team (Late st Contact Info) Description 12/03/2023 Refill [facility] 230 [place], [place] [phone] Shanique Anaya MD 230 [place] [address] Viral upper respiratory tract infection; Lumbar disc herniation with radiculopathy Social History Tobacco Use Types Packs/Day Years Used Date Smoking Tobacco: Never Smokeless Tobacco: Never Alcohol Use Standard [...] with others, in a hotel, in a usp, living outside on the street, on a [...] Description 07/12/2025 3:00 PM EST Office Visit [facility] [address] [place] [address] Latia Whitehead, OD 230 [place] [address] documented as of this encounter Visit Diagnoses Diagnosis Viral upper respiratory tract infection Acute upper respiratory infections of unspecified site 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
--- OUTSIDE RECORDS SUMMARY | 2025-05-04 17:04 | XMS_ITS | Encounter Summary ---
Author Organization [employer] Address 75 [facility] 7t [place] [address] Care Team Providers Care Pens And Pencils Dipper Name Role Phone Shanique Anaya MD Primary Care Provider + Encounter Details Date Type Department Care Team (Late st Contact Info) Description 04/24/2022 Orders Only [facility] MED & PEDS [address] [place], [place] [phone] Katlin Cruz LPN Social History Tobacco Use Types Packs/Day Years Used Date Smoking Tobacco: Never Assessed Sex and Gender Information Value Date Recorded Sex Assigned at Male 03/12/2022 10:34 AM EDT Legal Sex Male 10:34 AM EDT Gender Identity Male 03/12/2022 10:34 AM EDT Sexual Orientation Choose not to disclose 2021 10:34 AM EDT documented as of this encounter Miscellaneous Notes * Result Encounter Note - Shanique Anaya MD - 04/24/2022 3:53 PM EST ED results from 04/2022, seen at ED documented in this encounter Plan of Treatment Upcoming Encounters Date Type Department Care Team (Late st Contact Info) Description 07/12/2025 3:00 PM EST Office Visit [facility] [address] [place], [place] [phone] Ventura, Latia, OD [address] [place], [place] [phone] documented as of this encounter Procedures Procedure Name Priority Date/Time Associated Diagnosis Comments CBC WITH AUTO DIFFERENTIAL Routine 05/05/2022 4:05 PM EST LACTIC ACID LAB USE ONLY Routine 05/05/2022 11:46 AM EST LACTIC ACID LAB USE ONLY Routine 05/05/2022 8:52 AM EST LACTIC ACID Routine 05/05/2022 5:23 AM EST CBC Routine 05/05/2022 4:45 AM EST LIPASE Routine 05/05/2022 4:45 AM EST HEPATIC FUNCTION PANEL Routine 4:45 AM EST COMPREHENSIVE METABOLIC PANEL Routine 05/05/2022 4:45 AM EST documented in this encounter Results * (ABNORMAL) CBC auto differential (05/05/2022 4:05 PM EST) White Blood Count 10.6 4.8 - 10.8 X10*3/uL [facility] Red Blood Count 5.09 4.60 - 5.80 X10*6/uL [facility] Hemoglobin 15.2 14.0 - 18.0 g/dl [facility] Hematocrit 44.5 42.0 - 52.0 % [facility] Mean Corpuscular Volume 87.4 80.0 - 98.0 fL [facility] Mean Corpuscular Hemoglobin 29.9 27.0 - 33.0 pg [facility] Mean Corpuscular HGB Conc 34.2 31.0 - 36.0 g/dl [facility] Red Cell Distribution Width 13.6 11.0 - 16.0 % [facility] Platelet Count 291 160 - 400 X10*3/uL [facility] Mean Platelet Volume 9.4 9.4 - 12.4 fL [facility] Neutrophils Percent Auto 75.5(H) 45 - 73 % [facility] Imm Gran Pct Auto 0.3 0.0 - 0.4 % [facility] Lymphocytes Percent Auto 14.8(L) 20 - 40 % [facility] Monocytes Percent Auto 9.1 2 - 11 % [facility] Eosinophils Percent Auto 0.0 0 - 4 % [facility] Basophils Percent Auto 0.3 0 - 2 % [facility] NRBC Pct Auto 0.0 0.0 - 0.2 /100WBC [facility] Neutrophils Absolute Auto 8.0 2.0 - 8.3 x10*3/uL [facility] Imm Gran Abs Auto 0.03 0.00 - 0.03 X10*3/uL [facility] Lymphocytes Absolute Auto 1.6 1.2 - 4.9 X10*3/uL [facility] Monocytes Absolute Auto 1.0 0.1 - 1.2 X10*3/uL [facility] Eosinophils Absolute Auto 0.0 0.0 - 0.4 X10*3/uL [facility] Basophils Absolute Auto 0.0 0.0 - 0.2 X10*3/uL [facility] NRBC Abs Auto 0.000 0.0 - 0.012 X10*3/uL [facility] 05/05/2022 4:05 PM EST 05/05/2022 4:09 PM EST [facility] External Provider LAB BLO OD ORDERABLES Final Result Performing Organization Address City/[facility]/ZIP Co de Phone Number [facility] [address] [place] [phone] * Lactic Acid (05/05/2022 11:46 AM EST) Lactic Acid 1.9 0.5 - 2.0 mmol/L [facility] 05/05/2022 11:4 6 AM EST 05/05/2022 11:48 AM EST [facility] External Provider LAB BLO OD ORDERABLES Final Result [facility] [address] [place] [phone] * (ABNORMAL) Lactic Acid (05/05/2022 8:52 AM EST) Lactic Acid 2.1(HH) 0.5 - 2.0 mmol/L [facility] Comment:Critical value for t est(s):LACTA Results called to andread back by: KAYLI Person calling: [email or web address] Date:05/05/2022 Time:09:20 05/05/2022 8:52 AM EST 05/05/2022 8:57 AM EST [facility] External Provider LAB BLO OD ORDERABLES Final Result Performing Organization Address [facility] Co de Phone Number [facility] [address] [place] [phone] * (ABNORMAL) Lactic Acid (05/05/2022 5:23 AM EST) Lactic Acid 2.4(HH) 0.5 - 2.0 mmol/L [facility] Comment:Critical value for t est(s): LACTIC ACID Results called toand read back by:TYRONE Person calling:JANEate:05/05/22 Time:0544 05/05/2022 5:23 AM EST 05/05/2022 5:27 AM EST [facility] External Provider LAB BLO OD ORDERABLES Final Result Performing Organization Address [facility] Co de Phone Number [facility] [address] [place] [phone] * Lipase (05/05/2022 4:45 AM EST) Lipase 20 8 - 78 U/L [facility] 05/05/2022 4:45 AM EST 05/05/2022 4:47 AM EST [facility] External Provider LAB BLO OD ORDERABLES Final Result Performing Organization Address City/[facility]/ZIP Co de Phone Number [facility] [address] [place] [phone] [phone] * Hepatic Function Panel (05/05/2022 4:45 AM EST) Bilirubin, Direct 0.2 0.0 - 0.5 mg/dL [facility] Comment:Slight Hemolysis 05/05/2022 4:45 AM EST 05/05/2022 4:47 AM EST [facility] External Provider LAB BLO OD ORDERABLES Final Result Performing Organization Address [facility] de Phone Number [facility] [address] [place] [phone] * (ABNORMAL) Comprehensive Metabolic Panel (05/05/2022 4:45 AM EST) Sodium 143 135 - 145 mmol/L [facility] Potassium 4.4 3.3 - 5.1 mmol/L [facility] Chloride 107 96 - 108 mmol/L [facility] Carbon Dioxide 24 22 - 29 mmol/L [facility] Anion Gap 16 12 - 20 [facility] Urea Nitrogen (BUN) 14 9 - 16 mg/dL [facility] Creatinine, Serum 1.00 0.5 - 1.4 mg/dL [facility] Creatinine Clr Calc Pharmacy 91.8 [facility] Comment:eGFR (calculated fro m the MDRD study equation) and eCrCl(calculated from the Cockcroft-Gault equation) are based ondifferent parameters and may not yield comparable results.If eCrCl result is absurd, please check patient'sheight/weight. Estimated Glomerular Filt Rate >60 [facility] Comment:NOTE: For -Am erican individuals, multiply the result by 1.210.Chronic Kidney Disease: Estimated GFR < 60 mL/min/[id number] Kidney Disease: Estimated GFR < 15 mL/min/1.73m2 Glucose 115 60 - 115 mg/dL [facility] Calcium 9.1 8.4 - 10.2 mg/dL [facility] Bilirubin, Total 0.5 0.0 - 1.0 mg/dL [facility] Aspartate Amino Transferase 21 5 - 37 U/L [facility] Comment:Slight Hemolysis Alanine Aminotransferase 22 0 - 40 U/L [facility] Total Protein 7.1 6.5 - 8.0 g/dL [facility] Albumin Level 4.4 3.5 - 5.0 g/dL [facility] Alkaline Phosphatase 134(H) 39 - 117 U/L [facility] 05/05/2022 4:45 AM EST 05/05/2022 4:47 AM EST [facility] External Provider LAB BLO OD ORDERABLES Final Result Performing Organization Address City/State/[facility] Co de Phone Number [facility] [address] [place] [phone] * (ABNORMAL) CBC (05/05/2022 4:45 AM EST) White Blood Count 11.0(H) 4.8 - 10.8 X10*3/uL [facility] Red Blood Count 5.45 4.60 - 5.80 X10*6/uL [facility] Hemoglobin 16.0 14.0 - 18.0 g/dl [facility] Hematocrit 47.6 42.0 - 52.0 % [facility] Mean Corpuscular Volume 87.3 80.0 - 98.0 fL [facility] Mean Corpuscular Hemoglobin 29.4 27.0 - 33.0 pg [facility] Mean Corpuscular HGB Conc 33.6 31.0 - 36.0 g/dl [facility] Red Cell Distribution Width 13.5 11.0 - 16.0 % [facility] Platelet Count 290 160 - 400 X10*3/uL [facility] Mean Platelet Volume 9.2(L) 9.4 - 12.4 fL [facility] NRBC Pct Auto 0.0 0.0 - 0.2 /100WBC [facility] NRBC Abs Auto 0.000 0.0 - 0.012 X10*3/uL [facility] 05/05/2022 4:45 AM EST 05/05/2022 4:47 AM EST us [facility] External Provider LAB BLO OD ORDERABLES Final Result [facility] [address] [place] [phone] [phone] documented in this encounter Visit Diagnoses Not on filedocumented in this encounter Care Teams Pens And Pencils Dipper Relationship Specialty Start Date End Date Shanique Anaya MD [address] [place] [phone] PCP - General Family Medicine 12/05/17 Kristi Pat Ux Developer DesignerNursing Consultant 06/24/23 Kristi Pat Ux Developer DesignerNursing Consultant 07/16/24 documented as of this encounter
--- OUTSIDE RECORDS SUMMARY | 2025-05-04 17:04 | XMS_ITS | Encounter Summary ---
Author Organization [employer] Address [address] [facility] [address] [place] [address] Care Team Providers Care Thermal Cutter Helper Name Role Phone Shanique Anaya MD Primary Care Provider + Encounter Details Date Type Department Care Team (Late Contact Info) Description 10/25/2022 Abstract [facility] MEDICINE [address] [place], [place] [phone] Shanique Anaya MD [address] [place], [place] [phone] Social History Tobacco Use Types Packs/Day Years [...] Description 07/12/2025 3:00 PM EST Office Visit [facility] OPTOMETRY [address] [place] [address] Vent[place], Latia, OD [address] [place] [address] documented as of this encounter Procedures Procedure Name Priority Date/Time Associated Diagnosis Comments COLONOSCOPY Routine 06/11/2017 11:53 AM EST documented in this encounter Results * Colonoscopy (06/11/2017 11:53 AM EST) Colonoscopy Normal Normal Narrative Fang, Niru - 06/11/2017 11:53 AM EST Recommended 5 year follow up us Historical Provider HEALTH MAINTENANCE Final Result documented in this encounter Visit Diagnoses Not on filedocumented in this encounter Care Teams Thermal Cutter Helper Relationship Specialty Start Date End Date Shanique Anaya MD [address] [place] [id number] PCP - General Family Medicine 12/05/17 Kristi Pat Bundle ClerkSolar Energy System Installer Helper 06/24/23 Kristi Pat Bundle ClerkSolar Energy System Installer Helper 07/16/24 documented as of this encounter
--- OUTSIDE RECORDS SUMMARY | 2025-05-04 17:04 | XMS_ITS | Encounter Summary ---
Author Organization [email or web address] Address [address] [facility] [address] [place] [address] Care Team Providers Care Ecommerce Merchandising Manager Name Role Phone Shanique Anaya MD Primary Care Provider + Reason for Visit * Reason Onset Date Comments Med Refill 02/25/2024 Encounter Details Date Type Department Care Team ([facility] st Contact Info) Description 02/25/2024 Refill [facility] MEDICINE [address] [place], [place] [phone] Shanique Anaya MD [address] [place] [address] Seasonal allergies Social History Tobacco Use Types [...] with others, in a hotel, in a penitentiary, living outside on the street, on a [...] [facility] OPTOMETRY [address] [place] [address] Latia Whitehead, HUGH [address] [place] [address] documented as of this encounter Visit Diagnoses Diagnosis Seasonal allergies Allergic rhinitis, cause unspecified documented in this encounter Additional Health Concerns Assessment Noted Time PHQ-9 Depression Total Score: 24 024 9:56 AM EST documented as of this encounter Care Teams Ecommerce Merchandising Manager Relationship Specialty Start Date End Date Shanique Anaya MD [address] [place] [address] PCP - General Family Medicine 12/05/17 Kristi Pat Crusher ForemanAlarm Signal Operator 06/24/23 Kristi Pat Crusher ForemanAlarm Signal Operator 07/16/24 documented as of this encounter
--- OUTSIDE RECORDS SUMMARY | 2025-05-04 17:04 | XMS_ITS | Encounter Summary ---
Author Organization [employer] Address [address] [facility] [address] [place] [address] Care Team Providers Care Manager Of International Name Role Phone Shanique Anaya MD Primary Care Provider + Encounter Details Date Type Department Care Team (Late st Contact Info) Description 06/05/[address] [facility] MEDICINE [address] [place] [address] Tiki Merchant LPN Social History Tobacco Use [...] Description 07/12/2025 3:00 PM EST Office Visit [facility] OPTOMETRY [address] [place] [address] Latia Whitehead, OD [address] [place] [address] documented as of this encounter Visit Diagnoses Not on filedocumented in this encounter Care Teams Manager Of International Relationship Specialty Start Date End Date Shanique Anaya MD [address] [place] [address] PCP - General Family Medicine 12/05/17 Kristi Pat Radiator TesterPerennial House Manager 06/24/23 Kristi Pat Radiator TesterPerennial House Manager 07/16/24 documented as of this encounter
== END 2025-05-04 16:26 | disposition home or self-care (01) ==
LOC: HO.XRAY 16:25
PROVIDERS: PCP Internal Medicine; Visit Provider Internal Medicine
DX: M75.81 Other shoulder lesions, right shoulder (principal)
CPT/HCPCS: 73030

== ENCOUNTER → 2025-05-04 16:29 | Outpatient (BNV) | payer MEDICAID, SELFPAY | PROVIDERS: PCP Internal Medicine; Visit Provider Radiology Diagnostic Radiology | DX: M75.21 Bicipital tendinitis, right shoulder (principal) | CPT/HCPCS: 73030 ==